=== PATIENT | female | born 1945 | race Caucasian/White ===

== ENCOUNTER 2017-08-17 22:29 | Emergency (ER) | payer MEDICARE ==
[2017-08-17 22:42] VITALS: BP 102/61
--- NOTE | 2017-08-18 01:21 | ER Document Report ---
ED Extremity Problem, Lower - General Chief Complaint: Laceration Stated Complaint: LEFT LEG INJURY Time Seen by Provider: 08/18/17 00:57 Mode of Arrival: Medic Information source: Patient Notes: 71-year-old female presents to ED for laceration to the left guerra and abrasions to the right guerra after the microwave fell out of the shop at the hotel falling on her shins injuring both shins. Patient states the medic helped her to stop the bleeding and put dressings on. She states her tetanus is up-to-date she remembers she had it in 2013. TRAVEL OUTSIDE OF THE [place] IN LAST 30 DAYS: No - HPI Patient complains to provider of: Injury, Pain Location: Leg Occurred: Just prior to arrival Where: Other - lives in a motel Onset/Duration: Sudden Quality of pain: Sharp Severity: Moderate Pain Level: 3 Context: Laceration, Other - contusion abrasion Recent injury: Yes Associated symptoms: Other - microwave fell on both shins Exacerbated by: Movement, Walking Relieved by: Nothing - Related Data Allergies/Adverse Reactions: acetaminophen [From Vicodin] Allergy (Verified 08/18/17 01:07) hydrocodone [From Vicodin] Allergy (Verified 08/18/17 01:07) Sulfa (Sulfonamide Antibiotics) Allergy (Verified 08/18/17 01:07) tetracycline Allergy (Verified 08/18/17 01:07) Past Medical History - General Information source: Patient - Social History Smoking Status: Current Every Day Smoker Cigarette use (# per day): Yes - vapor Chew tobacco use (# tins/day): No Smoking Education Provided: Yes Frequency of alcohol use: None Drug Abuse: None Lives with: Other - motel Family History: Reviewed & Not Pertinent Patient has suicidal ideation: No Patient has homicidal ideation: No - Past Medical History Cardiac Medical History: Reports: Hx Congestive Heart Failure Pulmonary Medical History: Reports: Hx Bronchitis, Hx COPD, Hx Pneumonia EENT Medical History: Reports: None Neurological Medical History: Reports: None Endocrine Medical History: Reports: None Renal/ Medical History: Reports: None Malignancy Medical History: Reports: None GI Medical History: Reports: Hx Gastritis, Hx Gastroesophageal Reflux Disease, Hx Colonoscopy Musculoskeltal Medical History: Reports Hx Arthritis - degenerative disc dx ( back); cervical discs bulging, Reports Hx Musculoskeletal Deformity, Reports Hx Musculoskeletal Trauma Skin Medical History: Reports None Psychiatric Medical History: Reports: Hx Depression Traumatic Medical History: Reports: None Infectious Medical History: Reports: None Past Surgical History: Reports: Hx Orthopedic Surgery - L hip replacement; multiple hip surgeries - Immunizations Hx Diphtheria, Pertussis, Tetanus Vaccination: Yes - 2013 Hx Pneumococcal Vaccination: 05/31/17 Review of Systems - Review of Systems Constitutional: No symptoms reported EENT: No symptoms reported Cardiovascular: No symptoms reported Respiratory: No symptoms reported Gastrointestinal: No symptoms reported Genitourinary: No symptoms reported Female Genitourinary: No symptoms reported Musculoskeletal: No symptoms reported Skin: Change in color, Other - laceration to left and abrasion to right guerra Hematologic/Lymphatic: No symptoms reported Neurological/Psychological: No symptoms reported Physical Exam - Vital signs Vitals: Temp Pulse Resp BP Pulse Ox 98.1 F 82 16 102/61 92 08/17/17 22:37 08/17/17 22:37 08/17/17 22:37 08/17/17 22:37 08/17/17 22:37 Interpretation: Normal - General General appearance: Appears well, Alert - HEENT Head: Normocephalic, Atraumatic Eyes: Normal Pupils: PERRL - Respiratory Respiratory status: No respiratory distress Chest status: Nontender Breath sounds: Normal Chest palpation: Normal - Cardiovascular Rhythm: Regular Heart sounds: Normal auscultation Murmur: No - Abdominal Inspection: Normal Distension: No distension Bowel sounds: Normal Tenderness: Nontender Organomegaly: No organomegaly - Back Back: Normal, Nontender - Extremities General upper extremity: Normal inspection, Nontender, Normal color, Normal ROM , Normal temperature General lower extremity: Normal temperature, Normal weight bearing. No: Moshe' s sign Calf: Tender, Abrasion, Ecchymosis, Laceration. No: Unable to bear weight - pain with ambulation Ankle: Ecchymosis - Neurological Neuro grossly intact: Yes Cognition: Normal Orientation: AAOx4 [place] Coma Scale Eye Opening: Spontaneous [place] Coma Scale Verbal: Oriented [place] Coma Scale Motor: Obeys Commands [place] Coma Scale Total: 15 Speech: Normal Motor strength normal: LUE, RUE, LLE, RLE Sensory: Normal - Psychological Associated symptoms: Normal affect, Normal mood - Skin Skin Temperature: Warm Skin Moisture: Dry Skin Color: Normal Course - Re-evaluation Re-evalutation: 08/18/17 01:43 Patient was treated with Keflex in the emergency room. Patient is on pain management and had already taken her medicine but tonight. Both legs were cleaned well with surgical scrub rinsed well with saline bacitracin Telfa and Kerlix applied to the right lower leg benzoin Steri-Strips Telfa and Kerlix applied to the left lower leg. Patient was given instructions on care for both legs. Patient instructed to follow-up with her primary doctor which she says she has an appointment with in 2 days. Patient states she just saw her pain management doctor today. - Vital Signs Vital signs: Temp Pulse Resp BP Pulse Ox 98.1 F 82 16 102/61 92 08/17/17 22:37 08/17/17 22:37 08/17/17 22:37 08/17/17 22:37 08/17/17 22:37 Procedures - Laceration/Wound Repair Left Leg Time completed: 01:45 Wound length (cm): 5 Wound's Depth, Shape: Superficial, Linear, Contused tissue Laceration pre-procedure: Sterile PPE donned, Sterile drapes applied, Shur- Clens applied Volume Anesthetic (mLs): 0 Wound explored: Clean Irrigated w/ Saline (mLs): 400 Wound Repaired With: Steri-strips Discharge - Discharge Clinical Impression: Abrasion, right lower leg, initial encounter, Contusions both lower legs Laceration of left lower extremity Qualifiers: Encounter type: initial encounter Qualified Code(s): S81.812A - Laceration without foreign body, left lower leg, initial encounter Condition: Stable Disposition: HOME, SELF-CARE Instructions: Family Physicians / Practices Additional Instructions: CONTUSION: Your injury has resulted in a contusion -- a crushing of the deep tissues. No injury to important structures was detected during the physician's exam. Contusions vary in the amount of pain they cause, and in the length of time required for healing. Typically, the area will become bruised, and will remain painful to touch for two or three weeks. However, most patients are back to working and playing within a few days. After the initial period of rest and cold-packs, your symptoms (together with the doctor's recommendations) will determine how rapidly you can get back to full activity. Usually this means "do what feels okay, but don't do things that hurt." If re-examination was recommended, it's important to follow up as instructed. Call the doctor or return any time if pain increases, if swelling becomes severe, if you develop numbness or weakness in an injured extremity, or if any other alarming symptoms occur. ABRASIONS: An abrasion is a scraping injury of the skin. Some scarring may result. The seriousness of an abrasion is not always obvious at first. Hidden tissue damage may be present and infection may occur despite proper care. Complete healing may take from ten days to as long as a month. The healing time depends on the depth of the abrasion, and on the amount of crushing of underlying tissues from the injury. Keep the wound and dressing clean. Do not shower or bathe the area until okayed by the doctor. If the dressing gets wet, remove it and blot the wound dry, then reapply a clean dressing. Dressings should be changed every day. Sunscreen should be used for six months after the skin is healed. If any signs of infection occur (swelling, redness, increasing tenderness, red streaks, profuse purulent drainage from the abrasion, tender lumps in the armpit or groin above the abrasion, or fever), see the doctor immediately. Care of Steri-Strip Closure Your cut has been closed up with a special surgical tape. For this type of cut, it can replace stitches. You must protect the wound just as you would with stitches, however. For the first few days, keep the wound area completely dry. This also means you should avoid activity which makes you sweat. Do not move the area if motion stretches or wrinkles the strips. Don't allow the area to be bumped -- if bleeding occurs, the blood can make the strips loosen. The strips are somewhat waterproof. After a few days, the physician may allow you to shower. Be sure to ask if it's OK. Do not remove the tape until it peels off by itself. At that time, the wound should be healed. Cephalexin The antibiotic you've been prescribed is a member of the cephalosporin class. This type of antibiotic covers a wide variety of infections, including those of the skin, lungs, and urinary tract. It's useful for staph infections. This antibiotic is slightly similar to the penicillin family. In rare cases , a person who is allergic to penicillin will also be allergic to this medication. If you have had a severe allergic reaction to penicillin, and have not taken this antibiotic since that time, notify your doctor. Antibiotics which cover many germs ("broad spectrum" antibiotics) are more likely to cause diarrhea or "yeast" infections. Women prone to vaginal yeast problems may suffer an attack after taking this antibiotic. In infants, oral thrush (white spots "stuck" on the cheek) or yeast diaper rash may result. See your doctor if these problems occur. Call at once if you develop itching, hives , shortness of breath, or lightheadedness. FOLLOW-UP CARE: If you have been referred to a physician for follow-up care, call the physician s office for an appointment as you were instructed or within the next two days. If you experience worsening or a significant change in your symptoms, notify the physician immediately or return to the Emergency Department at any time for re-evaluation. Prescriptions: Cephalexin Monohydrate [Keflex 500 mg Capsule] 500 mg PO Q6H 5 Days capsule
[2017-08-18] MEDS ORDERED: CEPHALEXIN 500 MG CAPSULE PO ONE (01:41)
== END 2017-08-18 01:53 | disposition home or self-care (01) ==
LOC: ER 22:29
PROC: 0HQLXZZ Repair Left Lower Leg Skin, External Approach (ICD-10-PCS; principal; 2017-08-17)
DX: S81.812A Laceration without foreign body, left lower leg, initial encounter (principal); S80.811A Abrasion, right lower leg, initial encounter; S80.11XA Contusion of right lower leg, initial encounter; S80.12XA Contusion of left lower leg, initial encounter; W22.8XXA Striking against or struck by other objects, initial encounter; Y92.59 Other trade areas as the place of occurrence of the external cause; F17.200 Nicotine dependence, unspecified, uncomplicated
CPT/HCPCS: 99282; 12002; A9270

== ENCOUNTER 2019-10-16 15:26 | Observation (INO) | payer MEDICARE ==
--- NOTE | 2019-10-16 16:34 | ER Document Report ---
ED Medical Screen (RME) - General Chief Complaint: Leg Pain Stated Complaint: RIGHT LEG PAIN/WOUND Time Seen by Provider: 10/16/19 16:20 Notes: 73-year-old female presents to the emergency department with an ulceration on her distal right lower extremity just proximal to the medial malleolus. Patient has been seen by wound care and has not improved so they recommended she come to the ER for further evaluation. Patient is on pain management through [facility]. No fevers or chills. Exam: Well-appearing no acute distress, edema OD distal right lower extremity with erythema and 2 cm x 2 cm ulceration proximal to the medial malleolus. I have greeted and performed a rapid initial assessment of this patient. A comprehensive ED assessment and evaluation of the patient, analysis of test results and completion of medical decision making process will be conducted by an additional ED providers. TRAVEL OUTSIDE OF THE [place] IN LAST 30 DAYS: No - Related Data Allergies/Adverse Reactions: acetaminophen [From Vicodin] Allergy (Verified 10/16/19 16:13) hydrocodone [From Vicodin] Allergy (Verified 10/16/19 16:13) Sulfa (Sulfonamide Antibiotics) Allergy (Verified 10/16/19 16:13) tetracycline Allergy (Verified 10/16/19 16:13) Past Medical History - Social History Chew tobacco use (# tins/day): No Frequency of alcohol use: None Drug Abuse: None - Past Medical History Cardiac Medical History: Reports: Hx Congestive Heart Failure Pulmonary Medical History: Reports: Hx Bronchitis, Hx COPD, Hx Pneumonia Renal/ Medical History: Denies: Hx Peritoneal Dialysis GI Medical History: Reports: Hx Gastritis, Hx Gastroesophageal Reflux Disease, Hx Colonoscopy Musculoskeltal Medical History: Reports Hx Arthritis - degenerative disc dx (back); cervical discs bulging, Reports Hx Musculoskeletal Deformity, Reports Hx Musculoskeletal Trauma Psychiatric Medical History: Reports: Hx Depression Past Surgical History: Reports: Hx Orthopedic Surgery - L hip replacement; multiple hip surgeries - Immunizations Hx Diphtheria, Pertussis, Tetanus Vaccination: Yes - 2013 Physical Exam - Vital signs Vitals: Temp Pulse Resp BP Pulse Ox 98.0 F 103 H 17 110/60 95 10/16/19 15:33 10/16/19 15:33 10/16/19 15:33 10/16/19 15:33 10/16/19 15:33 Course - Vital Signs Vital signs: Temp Pulse Resp BP Pulse Ox 98.0 F 103 H 17 110/60 95 10/16/19 16:13 10/16/19 15:33 10/16/19 16:13 10/16/19 15:33 10/16/19 16:13
--- NOTE | 2019-10-16 17:14 | RADIOLOGY REPORT (SQ) ---
EXAM DESCRIPTION: TIBIA FIBULA RIGHT COMPLETED DATE/TIME: 10/16/2019 4:58 pm REASON FOR STUDY: Ulcer, distal medial leg over tib COMPARISON: None. NUMBER OF VIEWS: Two views. TECHNIQUE: Two radiographic images acquired of the right tibia and fibula to include the knee and an kle in at least one projection. LIMITATIONS: None. FINDINGS: MINERALIZATION: Osteopenia. BONES: No acute fracture or dislocation. No worrisome bone lesions. SOFT TISSUES: No radiopaque foreign body. OTHER: No other significant finding. IMPRESSION: No acute osseous findings. TECHNICAL DOCUMENTATION: JOB ID: [id number] [place]-72 2010 [employer]- All Rights Reserved Reading location - IP/workstation name: [email or web address]
[2019-10-16 18:23] LABS: HEMATOCRIT 40.7 % (36.0-47.0); HEMOGLOBIN 13.4 g/dL (12.0-15.5); MEAN CORPUSCULAR HEMOGLOBIN 30.5 pg (27.0-33.4); MEAN CORPUSCULAR HGB CONC 32.9 g/dL (32.0-36.0); MEAN CORPUSCULAR VOLUME 93 fl (80-97); PLATELET COUNT 407 10^3/uL (150-450); RED BLOOD COUNT 4.39 10^6/uL (3.72-5.28)
[2019-10-16 18:46] LABS: ALBUMIN 4.2 g/dL (3.5-5.0); ALKALINE PHOSPHATASE 122 U/L (38-126); ANION GAP 13 (5-19); ASPARTATE AMINO TRANSFERASE 22 U/L (14-36); BILIRUBIN,DIRECT 0.2 mg/dL (0.0-0.4); BILIRUBIN,TOTAL 0.4 mg/dL (0.2-1.3); BLOOD UREA NITROGEN 15 mg/dL (7-20); CARBON DIOXIDE 31 mmol/L (22-30); CHLORIDE 95 mmol/L (98-107); GLUCOSE 89 mg/dL (75-110); POTASSIUM 4.6 mmol/L (3.6-5.0); TOTAL PROTEIN 7.2 g/dL (6.3-8.2)
[2019-10-16 18:57] LABS: ABSOLUTE LYMPHOCYTES# (MANUAL) 0.5 10^3/uL (0.5-4.7); ABSOLUTE MONOCYTES # (MANUAL) 0.9 10^3/uL (0.1-1.4); BASOPHILS % (MANUAL) 0 % (0-2); EOSINOPHILS % (MANUAL) 0 % (0-6); LYMPHOCYTES % (MANUAL) 3 % (13-45); MONOCYTES % (MANUAL) 5 % (3-13); SEGMENTED NEUTROPHILS % (MAN) 92 % (42-78); TOTAL CELLS COUNTED 100
[2019-10-16 18:58] LABS: ANISOCYTOSIS SLIGHT; PLATELET COMMENT ADEQUATE
[2019-10-16 20:45] VITALS: BP 94/76
--- NOTE | 2019-10-16 23:15 | ER Document Report ---
ED General - General Chief Complaint: Leg Pain Stated Complaint: RIGHT LEG PAIN/WOUND Time Seen by Provider: 10/16/19 16:20 Primary Care Provider: Wound Care [Provider Group] - Follow up in 3-5 days TRAVEL OUTSIDE OF THE [place] IN LAST 30 DAYS: No - HPI Notes: Patient is a 73-year-old female with a history of chronic pain, anxiety, panic attacks, on chronic low dose steroids who presents complaining of nonhealing wound to the right lower leg. Patient states that she will have occasional issues with edema to that leg, but does have an ulceration and wound that has been present since July. Patient states that she has been being treated by her pain medicine clinic and has been on Keflex for 5 days. They are trying to get her into wound clinic, but wanted her here for evaluation prior. She is able to eat and drink without difficulty. She is urinating normally and having normal bowel movements. No history of diabetes or MRSA. Denies any headache, fever, neck pain, URI, sore throat, chest pain, palpitations, syncope, cough, shortness of breath, wheeze, dyspnea, abdominal pain, nausea/vomiting/diarrhea, urinary retention, dysuria, hematuria, loss of control of bowel or bladder, numbness/tingling, muscle paralysis. - Related Data Allergies/Adverse Reactions: acetaminophen [From Vicodin] Allergy (Verified 10/16/19 16:13) hydrocodone [From Vicodin] Allergy (Verified 10/16/19 16:13) Sulfa (Sulfonamide Antibiotics) Allergy (Verified 10/16/19 16:13) tetracycline Allergy (Verified 10/16/19 16:13) Past Medical History - Social History Smoking Status: Never Smoker Chew tobacco use (# tins/day): No Frequency of alcohol use: None Drug Abuse: None Family History: Reviewed & Not Pertinent Patient has suicidal ideation: No Patient has homicidal ideation: No - Past Medical History Cardiac Medical History: Reports: Hx Congestive Heart Failure Pulmonary Medical History: Reports: Hx Bronchitis, Hx COPD, Hx Pneumonia Renal/ Medical History: Denies: Hx Peritoneal Dialysis GI Medical History: Reports: Hx Gastritis, Hx Gastroesophageal Reflux Disease, Hx Colonoscopy Musculoskeletal Medical History: Reports Hx Arthritis - degenerative disc dx (back); cervical discs bulging, Reports Hx Musculoskeletal Deformity, Reports Hx Musculoskeletal Trauma Psychiatric Medical History: Reports: Hx Depression Past Surgical History: Reports: Hx Orthopedic Surgery - L hip replacement; multiple hip surgeries - Immunizations Hx Diphtheria, Pertussis, Tetanus Vaccination: Yes - 2013 Hx Pneumococcal Vaccination: 05/31/17 Review of Systems - Review of Systems -: Yes All other systems reviewed and negative Physical Exam - Vital signs Vitals: Temp Pulse Resp BP Pulse Ox 98.0 F 103 H 17 110/60 95 10/16/19 15:33 10/16/19 15:33 10/16/19 15:33 10/16/19 15:33 10/16/19 15:33 - Notes Notes: PHYSICAL EXAMINATION: GENERAL: Well-appearing, well-nourished and in no acute distress. LUNGS: Breath sounds clear to auscultation bilaterally and equal. No wheezes rales or rhonchi. HEART: Regular rate and rhythm without murmurs, rubs, gallops. Musculoskeletal: FROM to passive/active. Strength 5+/5. Extremities: 3+ pitting edema rt LE. No edema LLE. Peripheral pulses 2+. Capillary refill less than 3 seconds. NEUROLOGICAL: Cranial nerves grossly intact. Normal speech, normal gait. Normal sensory, motor exams PSYCH: Normal mood, normal affect. SKIN: RLE is warm, erythemic, edematous. + 4x2cm ulceration noted to the medial distal lower leg. there is weeping noted from the leg. Course - Re-evaluation Re-evalutation: 10/16/19 23:20 Patient is an afebrile, well-hydrated, 73-year-old female who presents with right lower leg ulceration and cellulitis with leukocytosis. Vitals are acceptable. PE is otherwise unremarkable. See labs. Imaging unremarkable. Patient has failed outpatient treatment with Keflex. I do believe the patient needs admission for IV antibiotics and wound care. I did call and speak with our surgeon, Dr. Cortes, who will come eval the patient and would like her on clindamycin IV. 10/17/19 00:01 Dr. Cortes does agree patient needs IV antibiotics, but no surgical intervention is warranted and recommends hospitalist admission. 10/17/19 00:[address] Atkinson who will accept patient for admit to telemetry. 10/17/19 00:21 Patient is now changing her mind about admission. I reviewed the risk and benefit of admission versus discharge including worsening infection, sepsis, and even . Patient states that she just wants to take the clindamycin at home and she will follow-up with her family doctor in the next couple days. Strict return precautions reviewed. Patient aware of the risk/benefits of her decision. - Vital Signs Vital signs: Temp Pulse Resp BP Pulse Ox 98.3 F 77 16 94/76 L 97 10/16/19 20:38 10/16/19 20:38 10/16/19 20:38 10/16/19 20:38 10/16/19 20:38 - Laboratory Result Diagrams: 10/16/19 17:45 10/16/19 17:45 Laboratory results interpreted by me: 10/16/19 10/16/19 17:45 17:45 WBC 18.0 H Seg Neuts % (Manual) 92 H Lymphocytes % (Manual) 3 L Abs Neuts (Manual) 16.6 H Chloride 95 L Carbon Dioxide 31 H Discharge - Discharge Clinical Impression: Cellulitis of right lower extremity Wound of right lower extremity Qualifiers: Encounter type: initial encounter Qualified Code(s): S81.801A - Unspecified open wound, right lower leg, initial encounter Condition: Stable Disposition: AGAINST MEDICAL ADVICE Additional Instructions: You have chosen to leave AGAINST MEDICAL ADVICE. You are aware of the risk and benefit to this decision including worsening infection, sepsis, and even . You are to monitor very closely and take medications as directed. Strict return precautions. Do not hesitate to return for any reason. You need to follow-up with your family doctor in the next couple days. Keep the skin clean Wash with soap and water Tylenol/ibuprofen if needed Epsom salt soaks Take medication as directed Monitor for any worsening symptoms Recheck with your PCM in 1-2 days Consider consult with Wound Clinic for ongoing/worsening symptoms Return to the ED with any worsening symptoms and/or development of fever, headache, chest pain, palpitations, syncope, shortness of breath, trouble breathing, abdominal pain, n/v/d, abscess, purulent discharge, red streaks, worsening swelling, or other worsening symptoms that are concerning to you. Prescriptions: Clindamycin HCl [Cleocin 300 mg Capsule] 300 mg PO QID #40 capsule Referrals: Wound Care [Provider Group] - Follow up in 3-5 days
[2019-10-16] MEDS ORDERED: CLINDAMYCIN 600 MG/D5W RTU 600 MG/50 ML RTUPB IV ONE (23:19)
[2019-10-17] MEDS ORDERED: NORMAL SALINE 1000 ML 1,000 ML IV ONE (00:06)
[2019-10-17] MEDS ORDERED: IPRATROPIUM/ALBUTEROL 0.5-2.5 MG/3 ML AMPUL NEB PRN (00:12)
[2019-10-17] MEDS ORDERED: MAGNESIUM HYDROXIDE SUSP 30 ML UDCUP PO PRN (00:12)
[2019-10-17] MEDS ORDERED: MAG HYDROX/AL HYDROX/SIMETH SUSP 30 ML UDCUP PO PRN (00:12)
[2019-10-17] MEDS ORDERED: KETOROLAC TROMETHAMINE INJ/PF 30 MG/1 ML SDV IV PRN (00:15)
[2019-10-17] MEDS ORDERED: VANCOMYCIN HCL 0 MG in DEXTROSE 5%-WATER 250 ML IV NR (00:15)
[2019-10-17] MEDS ORDERED: NORMAL SALINE 1000 ML 1,000 ML IV PRN (00:15)
--- NOTE | 2019-10-17 00:21 | PDOC CONSULTATION ---
Consultation Consult Date: 10/16/19 Provider Consulted: EDVIN RAMOS Consult reason:: Ulcer with the redness and swelling along the right lower leg History of Present Illness History of Present Illness: HOWARD GR is a 73 year old female with chronic back pains under pain management with a for the past year taking morphine sulfate and hydrocodone as well as prednisone on a daily basis noted ulcer along the right medial ankle area with redness and swelling in the past 2 weeks. She apparently fell and injured her leg and ribs 2 weeks ago. She further takes her medications for panic attacks. 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 Denies any fever nor chills. She apparently was at the wound care center in [place] few years ago and told that she has poor circulation in both lower legs. Past Medical History Cardiac Medical History: Reports: Congestive Heart Failure Pulmonary Medical History: Reports: Bronchitis, Chronic Obstructive Pulmonary Disease (COPD), Pneumonia GI Medical History: Reports: Gastroesophageal Reflux Disease Musculoskeltal Medical History: Reports: Arthritis - degenerative disc dx (back); cervical discs bulging Psychiatric Medical History: Reports: Depression Past Surgical History Past Surgical History: Reports: Orthopedic Surgery - L hip replacement; multiple hip surgeries Social History Smoking Status: Former Smoker Electronic Cigarette use?: No Hx Prescription Drug Abuse: Yes - On morphine sulfate and hydrocodone for back pains on pain management Family History Family History: Reviewed & Not Pertinent Parental Family History Reviewed: Yes Children Family History Reviewed: No Sibling(s) Family History Reviewed.: No Medication/Allergy Home Medications: Cephalexin Monohydrate [Keflex 500 mg Capsule] 500 mg PO Q6H 5 Days capsule 08/18/17 Allergies/Adverse Reactions: acetaminophen [From Vicodin] Allergy (Verified 10/16/19 16:13) hydrocodone [From Vicodin] Allergy (Verified 10/16/19 16:13) Sulfa (Sulfonamide Antibiotics) Allergy (Verified 10/16/19 16:13) tetracycline Allergy (Verified 10/16/19 16:13) Review of Systems Constitutional: PRESENT: as per HPI Psychiatric: PRESENT: other - Has panic attacks and takes medication for this Endocrine: PRESENT: other - Takes prednisone 5 mg p.o. daily Physical Exam Vital Signs: Temp Pulse Resp BP Pulse Ox 98.3 F 77 16 94/76 L 97 10/16/19 20:38 12/17/19 20:38 10/16/19 20:38 10/16/19 20:38 10/16/19 20:38 Intake & Output 10/15/19 10/16/19 10/17/19 06:59 06:59 06:59 Weight 45.6 kg General appearance: PRESENT: mild distress Eye exam: PRESENT: conjunctiva pink Mouth exam: PRESENT: moist Neck exam: PRESENT: full ROM Respiratory exam: PRESENT: clear to auscultation verónica Cardiovascular exam: PRESENT: RRR Pulses: PRESENT: +1 pedal pulses bilateral Vascular exam: PRESENT: normal capillary refill GI/Abdominal exam: PRESENT: soft Rectal exam: PRESENT: deferred Extremities exam: PRESENT: other - Tender dry 2 x 4 cm ulcer on the right medial ankle area with's surrounding erythema and marked swelling. Palpable right dorsalis pedis artery pulse. No tissue to debride at this time Neurological exam: PRESENT: alert, oriented to person, oriented to place, oriented to time, oriented to situation Psychiatric exam: PRESENT: anxious Skin exam: PRESENT: erythema, warm, other - Swollen right below knee to the ankle area where the skin appears to be very thin with an ulceration on the medial ankle site about 2 x 4 cm. Results Laboratory Results: 10/16/19 17:45 10/16/19 17:45 10/16/19 10/16/19 17:45 17:45 WBC 18.0 H RBC 4.39 Hgb 13.4 Hct 40.7 MCV 93 MCH 30.5 MCHC 32.9 RDW 14.0 Plt Count 407 Seg Neutrophils % Not Reportable Sodium 138.5 Potassium 4.6 Chloride 95 L Carbon Dioxide 31 H Anion Gap 13 BUN 15 Creatinine 0.70 Est GFR ( Amer) > 60 Glucose 89 Calcium 10.0 Total Bilirubin 0.4 AST 22 Alkaline Phosphatase 122 Total Protein 7.2 Albumin 4.2 Impressions: Tibia/Fibula X-Ray 10/16/19 16:28 IMPRESSION: No acute osseous findings. Assessment & Plan - Diagnosis (1) Chronic back pain Is this a current diagnosis for this admission?: Yes (2) Pain management for back pains Is this a current diagnosis for this admission?: Yes (3) History of panic attacks Is this a current diagnosis for this admission?: Yes (4) On prednisone therapy Is this a current diagnosis for this admission?: Yes (5) Cellulitis of right lower extremity Is this a current diagnosis for this admission?: Yes (6) Wound of right lower extremity Qualifiers: Encounter type: initial encounter Qualified Code(s): S81.801A - Unspecified open wound, right lower leg, initial encounter Is this a current diagnosis for this admission?: Yes (7) Congenital right hip abnormality Is this a current diagnosis for this admission?: Yes - Time Time Spent: 30 to 50 Minutes - Inpatient Certification Medical Necessity: Need for Pain Control, Need for IV Antibiotics - Plan Summary Plan Summary: 73-year-old female under pain management for back pains on narcotics and predn isone reportedly fell and injured her ribs and right leg about 2 months ago. 2 weeks ago noted an ulceration along the right lower leg with reddish swelling around the right lower leg and increasing pains along the right ulcer site. Denies any fever nor chills. Has palpable right dorsalis pedis artery pulse. Impression: Ulcer right lower leg with cellulitis Recommendations: IV antibiotics right leg elevation Will eventually need referral to the wound care center once cellulitis improves Call for other questions
[2019-10-17] MEDS ORDERED: VANCOMYCIN HCL INJ 1000 MG VIAL IV PRN (00:34)
[2019-10-17] MEDS ORDERED: VANCOMYCIN HCL 1,000 MG in DEXTROSE 5%-WATER 250 ML IV ONE (01:00)
[2019-10-17] MEDS ORDERED: CEFTRIAXONE 1 GM/D5W RTU 1 GM/50 ML RTUPB IV ONE (01:00)
[2019-10-17] MEDS ORDERED: HEPARIN SOD (PORCINE) 5,000 UNIT/ML 1 ML VIAL SUBCUT SCH (06:00)
[2019-10-17] MEDS ORDERED: DOCUSATE SODIUM 100 MG CAPSULE PO SCH (10:00)
[2019-10-17] MEDS ORDERED: CEFTRIAXONE 1 GM/D5W RTU 1 GM/50 ML RTUPB IV SCH (22:00)
== END 2019-10-17 00:55 | disposition left against medical advice (07) ==
LOC: ER 15:26 → EH 10-17 00:12 → ER 10-17 00:55
PROVIDERS: ADMIT Internal Medicine; ATTEND Internal Medicine
DX: S81.801A Unspecified open wound, right lower leg, initial encounter (principal); L03.115 Cellulitis of right lower limb; X58.XXXA Exposure to other specified factors, initial encounter; G89.29 Other chronic pain; M79.604 Pain in right leg; I50.9 Heart failure, unspecified; J44.9 Chronic obstructive pulmonary disease, unspecified; Z88.6 Allergy status to analgesic agent; Z88.2 Allergy status to sulfonamides; Z96.642 Presence of left artificial hip joint; Z79.52 Long term (current) use of systemic steroids
CPT/HCPCS: 36415; 80053; 85025; 87040; 96365; 99284

== ENCOUNTER 2019-10-22 20:41 | Inpatient (IN) | payer MEDICARE ==
[2019-10-22] MEDS ORDERED: IPRATROPIUM/ALBUTEROL 0.5-2.5 MG/3 ML AMPUL NEB ONE (21:24)
--- NOTE | 2019-10-22 21:26 | ER Document Report ---
ED Medical Screen (RME) - General Chief Complaint: Wound Recheck Stated Complaint: WOUND Time Seen by Provider: 10/22/19 21:22 Primary Care Provider: ABENA SOLIS [Primary Care Provider] - Follow up as needed Mode of Arrival: Wheelchair Notes: Patient presents complaining of worsening infection to the right lower extremity. Patient was treated for cellulitis here on 10/16/2019. Patient stat es that her primary doctor had initially placed on Keflex for the wound and she was switched to clindamycin at her last ER visit. Patient also reports cough that started recently. Patient with diffuse bilateral wheezing. I have greeted and performed a rapid initial assessment of this patient. A comprehensive ED assessment and evaluation of the patient, analysis of test results and completion of the medical decision making process will be conducted by additional ED providers. TRAVEL OUTSIDE OF THE [place] IN LAST 30 DAYS: No - Related Data Allergies/Adverse Reactions: acetaminophen [From Vicodin] Allergy (Verified 10/16/19 16:13) hydrocodone [From Vicodin] Allergy (Verified 10/16/19 16:13) Sulfa (Sulfonamide Antibiotics) Allergy (Verified 10/16/19 16:13) tetracycline Allergy (Verified 10/16/19 16:13) Past Medical History - Past Medical History Cardiac Medical History: Reports: Hx Congestive Heart Failure Pulmonary Medical History: Reports: Hx Bronchitis, Hx COPD, Hx Pneumonia Renal/ Medical History: Denies: Hx Peritoneal Dialysis GI Medical History: Reports: Hx Gastritis, Hx Gastroesophageal Reflux Disease, Hx Colonoscopy Musculoskeltal Medical History: Reports Hx Arthritis - degenerative disc dx (back); cervical discs bulging, Reports Hx Musculoskeletal Deformity, Reports Hx Musculoskeletal Trauma Psychiatric Medical History: Reports: Hx Depression Past Surgical History: Reports: Hx Orthopedic Surgery - L hip replacement; multiple hip surgeries - Immunizations Hx Diphtheria, Pertussis, Tetanus Vaccination: Yes - 2013 Physical Exam - Vital signs Vitals: Temp Pulse Resp BP Pulse Ox 97.4 F 110 H 20 117/58 L 98 10/22/19 20:53 10/22/19 20:53 10/22/19 20:53 10/22/19 20:53 10/22/19 20:53 - Respiratory Respiratory status: No respiratory distress Breath sounds: Nonproductive cough, Wheezing Course - Vital Signs Vital signs: Temp Pulse Resp BP Pulse Ox 97.4 F 110 H 20 117/58 L 98 10/22/19 21:15 10/22/19 21:15 10/22/19 21:15 10/22/19 21:15 10/22/19 21:15 Doctor's Discharge - Discharge Referrals: WILL,NO [Primary Care Provider] - Follow up as needed
[2019-10-22 22:01] LABS: VENOUS BLOOD BASE EXCESS 4.1 mmol/L; VENOUS BLOOD HCO3 31.9 mmol/L (20-32); VENOUS BLOOD PCO2 62.9 mmHg (35-63); VENOUS BLOOD PH 7.32 (7.30-7.42)
[2019-10-22 22:06] LABS: INTERNATIONAL RATION (INR) 0.96; PROTHROMBIN TIME 12.8 SEC (11.4-15.4)
[2019-10-22 22:16] LABS: ALBUMIN 3.3 g/dL (3.5-5.0); ALKALINE PHOSPHATASE 86 U/L (38-126); ANION GAP 10 (5-19); ASPARTATE AMINO TRANSFERASE 30 U/L (14-36); BILIRUBIN,DIRECT 0.2 mg/dL (0.0-0.4); BILIRUBIN,TOTAL 0.5 mg/dL (0.2-1.3); BLOOD UREA NITROGEN 11 mg/dL (7-20); CALCIUM 8.8 mg/dL (8.4-10.2); CARBON DIOXIDE 29 mmol/L (22-30); CHLORIDE 99 mmol/L (98-107); GLUCOSE 198 mg/dL (75-110); POTASSIUM 3.4 mmol/L (3.6-5.0); TOTAL PROTEIN 6.5 g/dL (6.3-8.2)
[2019-10-22 22:25] LABS: HEMATOCRIT 37.8 % (36.0-47.0); HEMOGLOBIN 12.4 g/dL (12.0-15.5); MEAN CORPUSCULAR HEMOGLOBIN 30.2 pg (27.0-33.4); MEAN CORPUSCULAR HGB CONC 32.7 g/dL (32.0-36.0); MEAN CORPUSCULAR VOLUME 93 fl (80-97); PLATELET COUNT 267 10^3/uL (150-450); RED BLOOD COUNT 4.09 10^6/uL (3.72-5.28); RED CELL DISTRIBUTION WIDTH 13.9 % (11.5-14.0); WHITE BLOOD COUNT 11.2 10^3/uL (4.0-10.5)
--- NOTE | 2019-10-22 22:32 | EKG REPORT ---
SEVERITY:- ABNORMAL ECG - SINUS RHYTHM BIATRIAL ABNORMALITIES : Confirmed by: Rowena Edwards MD 22-Oct-2019 22:31:56
--- NOTE | 2019-10-22 22:41 | RADIOLOGY REPORT (SQ) ---
EXAM DESCRIPTION: XR CHEST 2 VIEWS COMPLETED DATE/TME: 10/22/2019 21:24 CLINICAL HISTORY: 73 years, Female, cough COMPARISON: None. NUMBER OF VIEWS: 2 TECHNIQUE: 2 views of the chest LIMITATIONS: None. FINDINGS: The heart size is normal. There is atheromatous change of the thoracic aorta. Osteopenia. COPD. No pneumothorax. Multiple old right rib fractures. Lungs are clear IMPRESSION: COPD. Lungs are clear copyright 2010 [employer]- All Rights Reserved
[2019-10-22 22:47] LABS: ABSOLUTE LYMPHOCYTES# (MANUAL) 0.2 10^3/uL (0.5-4.7); ABSOLUTE MONOCYTES # (MANUAL) 0.1 10^3/uL (0.1-1.4); BAND NEUTROPHILS % (MANUAL) 3 % (3-5); BASOPHILS % (MANUAL) 0 % (0-2); EOSINOPHILS % (MANUAL) 0 % (0-6); LYMPHOCYTES % (MANUAL) 2 % (13-45); MONOCYTES % (MANUAL) 1 % (3-13); PLATELET COMMENT ADEQUATE; RBC MORPHOLOGY COMMENT NORMO-CYTIC/CHROMIC; SEGMENTED NEUTROPHILS % (MAN) 94 % (42-78); TOTAL CELLS COUNTED 100
[2019-10-22] MEDS ORDERED: CLINDAMYCIN PHOSPHATE INJ 300 MG/2 ML SDV IV ONE (23:26)
[2019-10-23 00:36] LABS: APPEARANCE,URINE CLEAR; BILIRUBIN,URINE NEGATIVE (NEGATIVE); COLOR,URINE YELLOW; GLUCOSE, URINE NEGATIVE (NEGATIVE); KETONES,URINE NEGATIVE (NEGATIVE); PROTEIN,URINE 30 mg/dL (NEGATIVE); URINE SPECIFIC GRAVITY 1.017; UROBILINOGEN,URINE NEGATIVE mg/dL (<2.0)
--- NOTE | 2019-10-23 01:28 | RADIOLOGY REPORT (SQ) ---
EXAM: X-ray tibia-fibula two views, right CLINICAL DATA: 73-year-old female with open wound and cellulitis TECHNICAL DATA: Two x-ray views of the right tibia fibula were performed on 10/23/2019 at 12:54 AM. COMPARISONS: 10/16/2019 at 4:51 PM FINDINGS: There is no evidence of acute fracture or dislocation. There are no pathologic focal lytic or sclerotic bone lesions. No significant arthritic or degenerative changes are appreciated. When compared to the prior study, there appears to be slight indistinctness of the distal tip of the medial malleolus suspicious for possible osteomyelitis. Bone mineralization is slightly diminished. There is a lucency within the soft tissues adjacent to the distal medial right lower leg likely corresponding to the site of ulceration. There is also lucency within the soft tissues inferior to the medial malleolus. IMPRESSION: 1. Indistinctness of the tip of the medial malleolus which appears new when compared to the prior study. Findings raise concern for possible osteomyelitis. 2. Lucency within the soft tissues adjacent to the distal medial right lower leg and inferior to the medial malleolus which could represent areas of soft tissue ulceration and/or infection. 3. Mild generalized osteopenia.
--- NOTE | 2019-10-23 01:56 | ER Document Report ---
ED General - General Chief Complaint: Wound Recheck Stated Complaint: WOUND Time Seen by Provider: 10/22/19 21:22 Primary Care Provider: ABENA SOLIS [NO LOCAL MD] - Follow up as needed Mode of Arrival: Wheelchair Notes: 73-year-old woman presents to the emergency department with infection involving her left lower leg. Apparently she has an ulcer on the posterior aspect of the leg and cellulitis which extends into the leg. She was admitted to the hospital 10/17/2018 with right leg wound and cellulitis, patient signed herself out AGAINST MEDICAL ADVICE and now returns. She notes increasing redness increasing swelling and a worsening ulcer on the posterior aspect of her leg. She denies fever, nausea vomiting, and was started on an antibiotic outside by her primary physician. TRAVEL OUTSIDE OF THE [place] IN LAST 30 DAYS: No - Related Data Allergies/Adverse Reactions: acetaminophen [From Vicodin] Allergy (Verified 10/16/19 16:13) amoxicillin [From Augmentin] Allergy (Verified 10/22/19 21:42) clavulanic acid [From Augmentin] Allergy (Verified 10/22/19 21:42) hydrocodone [From Vicodin] Allergy (Verified 10/16/19 16:13) Sulfa (Sulfonamide Antibiotics) Allergy (Verified 10/16/19 16:13) tetracycline Allergy (Verified 10/16/19 16:13) Past Medical History - Social History Smoking Status: Unknown if Ever Smoked Family History: Reviewed & Not Pertinent Patient has suicidal ideation: No Patient has homicidal ideation: No - Past Medical History Cardiac Medical History: Reports: Hx Congestive Heart Failure Pulmonary Medical History: Reports: Hx Bronchitis, Hx COPD, Hx Pneumonia Renal/ Medical History: Denies: Hx Peritoneal Dialysis GI Medical History: Reports: Hx Gastritis, Hx Gastroesophageal Reflux Disease, Hx Colonoscopy Musculoskeletal Medical History: Reports Hx Arthritis - degenerative disc dx (back); cervical discs bulging, Reports Hx Musculoskeletal Deformity, Reports Hx Musculoskeletal Trauma Psychiatric Medical History: Reports: Hx Depression Past Surgical History: Reports: Hx Orthopedic Surgery - L hip replacement; multiple hip surgeries - Immunizations Hx Diphtheria, Pertussis, Tetanus Vaccination: Yes - 2013 Hx Pneumococcal Vaccination: 05/31/17 Review of Systems - Review of Systems Notes: Constitutional: Negative for fever. HENT: Negative for sore throat. Eyes: Negative for visual changes. Cardiovascular: Negative for chest pain. Respiratory: Negative for shortness of breath. Gastrointestinal: Negative for abdominal pain, vomiting or diarrhea. Genitourinary: Negative for dysuria. Musculoskeletal: + Right lower extremity redness, + wound Skin: Negative for rash. Neurological: Negative for headaches, weakness or numbness. 10 point ROS negative except as marked above and in HPI. Physical Exam - Vital signs Vitals: Temp Pulse Resp BP Pulse Ox 97.4 F 110 H 20 117/58 L 98 10/22/19 20:53 10/22/19 20:53 10/22/19 20:53 10/22/19 20:53 10/22/19 20:53 - Notes Notes: VS: reviewed GEN: pleasant elderly female in no acute distress, HEENT: NCAT, EOMi, PERRL, oropharynx clear, airway patent, mucous membranes moist, EAC clear, TMs intact, NECK: thyroid not palpable, no LAD, carotic pulse 2+B, no bruits, no JVD RESP: clear the wheezes, rales or rhonchi Chest: heart: regular rate and rhythm, no murmur,gallop or rub, nontender ABD: +BS, distended, nontender, no HSM PULSES: 2+femoral B, 1+ PT/DP B EXT right lower extremity with a 6 cm oval-shaped wound with a surface necrosis surrounded by erythema which extends from the wound throughout the lower leg., Erythema, edema, tenderness. SKIN: warm and intact NEURO: AOX3; difficulty remembering events, dates; remainder of exam nonfocal Course - Re-evaluation Re-evalutation: 10/23/19 02:20 Patient has had a worsening course since the day she signed out AGAINST MEDICAL ADVICE. X-ray of the right lower extremity reveals an indistinct this of the tip of the medial malleolus which appears new when compared to a prior study. Findings raises the concern of possible osteomyelitis. Lucency within the soft tissues adjacent to the distal medial right leg and inferior to the medial malleolus which represents an area of soft tissue ulceration and/or infection. I discussed these findings with the patient and explained that she would need to be hospitalized for IV antibiotics and that signing herself out AGAINST MEDICAL ADVICE would be a bad decision. Patient acknowledges an understanding of this plan and states that she will stay in the hospital for treatment this time. Dr. Atkinson was contacted and will admit the patient to the hospital for further evaluation and treatment. - Vital Signs Vital signs: Temp Pulse Resp BP Pulse Ox 97.4 F 110 H 20 117/58 L 98 10/22/19 21:15 10/22/19 21:15 10/22/19 21:15 10/22/19 21:15 10/22/19 21:15 - Laboratory Result Diagrams: 10/22/19 21:40 10/22/19 21:40 Laboratory results interpreted by me: 10/22/19 10/22/19 10/22/19 21:40 21:40 21:40 WBC 11.2 H Seg Neuts % (Manual) 94 H Lymphocytes % (Manual) 2 L Monocytes % (Manual) 1 L Abs Neuts (Manual) 10.9 H Abs Lymphs (Manual) 0.2 L Potassium 3.4 L Glucose 198 H NT-Pro-B Natriuret Pep 679 H Albumin 3.3 L Urine Protein Leukocyte Esterase Rfl Urine Ascorbic Acid 10/23/19 00:15 WBC Seg Neuts % (Manual) Lymphocytes % (Manual) Monocytes % (Manual) Abs Neuts (Manual) Abs Lymphs (Manual) Potassium Glucose NT-Pro-B Natriuret Pep Albumin Urine Protein 30 H Leukocyte Esterase Rfl SMALL H Urine Ascorbic Acid 20 H 10/23/19 02:02 I have reviewed laboratory data and used this information for the treatment decisions regarding the patient. Critical Care Note - Critical Care Note Total time excluding time spent on procedures (mins): 60 - Critical care time spent obtaining history from patient or surrogate, discussions with consultants, development of treatment plan with patient or surrogate, evaluation of patient's response to treatment, examination of patient, ordering and performing treatments and interventions, ordering and review of laboratory studies, re- evaluation of patient's condition, ordering and review of radiographic studies and review of old charts Discharge - Discharge Clinical Impression: Cellulitis of right lower extremity, Pain management for back pains Wound of right lower extremity Qualifiers: Encounter type: initial encounter Qualified Code(s): S81.801A - Unspecified open wound, right lower leg, initial encounter Condition: Good Disposition: ADMITTED INPATIENT Admitting Provider: Demetrio (Hospitalist) Unit Admitted: Medical Floor Referrals: LOCALMD,NO [NO LOCAL MD] - Follow up as needed
[2019-10-23] MEDS ORDERED: MAG HYDROX/AL HYDROX/SIMETH SUSP 30 ML UDCUP PO PRN (03:02)
[2019-10-23] MEDS ORDERED: ACETAMINOPHEN 325 MG TABLET PO PRN (03:02)
[2019-10-23] MEDS ORDERED: IPRATROPIUM/ALBUTEROL 0.5-2.5 MG/3 ML AMPUL NEB PRN (03:02)
[2019-10-23] MEDS ORDERED: MAGNESIUM HYDROXIDE SUSP 30 ML UDCUP PO PRN (03:02)
[2019-10-23] MEDS ORDERED: VANCOMYCIN HCL 0 MG in DEXTROSE 5%-WATER 250 ML IV NR (03:15)
[2019-10-23 03:37] LABS: ANION GAP 7 (5-19); BLOOD UREA NITROGEN 12 mg/dL (7-20); CALCIUM 8.5 mg/dL (8.4-10.2); CARBON DIOXIDE 29 mmol/L (22-30); CHLORIDE 102 mmol/L (98-107); GLUCOSE 132 mg/dL (75-110); POTASSIUM 3.6 mmol/L (3.6-5.0)
[2019-10-23] MEDS ORDERED: VANCOMYCIN HCL INJ 1000 MG VIAL IV PRN (03:39)
[2019-10-23] MEDS ORDERED: PIPERACILLIN/TAZOBACTAM 3.375 GM VIAL IV PRN (03:40)
[2019-10-23] MEDS ORDERED: VANCOMYCIN HCL 1,000 MG in DEXTROSE 5%-WATER 250 ML IV ONE (03:45)
[2019-10-23] MEDS: NORMAL SALINE 1000 ML 1,000 ML IV PRN ×2 (04:28→12:39)
[2019-10-23] MEDS ORDERED: VANCOMYCIN HCL INJ 1000 MG VIAL ONE (04:30)
[2019-10-23] MEDS ORDERED: PIPERACILLIN/TAZOBACTAM 3.375 GM VIAL IV ONE (04:31)
--- NOTE | 2019-10-23 05:41 | PDOC H&P ---
History of Present Illness Admission Date/PCP: 10/23/19 02:34 BOLIVAR YADAV MD Patient complains of: Right leg ulcer and cough History of Present Illness: HOWARD GR is a 73 year old female with a past medical history of COPD, chronic bronchitis, opiate dependent chronic pain and anxiety who presents with 2 weeks of erythema swelling, pain and large ulcer to the medial aspect of her right leg involving the medial malleolus. Patient was seen in the emergency department October 17 but signed out AGAINST MEDICAL ADVICE. She did receive a prescription for Keflex but was unimproved. She returns with complaints of worsening leg wound and COPD exacerbation with bronchitis. Labs reveal leukocytosis, leg x-ray is worrisome for osteomyelitis involving the medial malleolus. She started on empiric antibiotics and referred to the hospitalist for admission. Past Medical History Cardiac Medical History: Reports: Congestive Heart Failure Pulmonary Medical History: Reports: Bronchitis, Chronic Obstructive Pulmonary Disease (COPD), Pneumonia GI Medical History: Reports: Gastroesophageal Reflux Disease Musculoskeltal Medical History: Reports: Arthritis - degenerative disc dx (back); cervical discs bulging Psychiatric Medical History: Reports: Depression Past Surgical History Past Surgical History: Reports: Orthopedic Surgery - L hip replacement; multiple hip surgeries Social History Information Source: Patient, [facility] Records Smoking Status: Unknown if Ever Smoked Frequency of Alcohol Use: None Hx Prescription Drug Abuse: Yes - On morphine sulfate and hydrocodone for back pains on pain management - Advance Directive Resuscitation Status: Full Code Family History Family History: Hypertension Parental Family History Reviewed: Yes Children Family History Reviewed: Yes Sibling(s) Family History Reviewed.: Yes Medication/Allergy Home Medications: Cephalexin Monohydrate [Keflex 500 mg Capsule] 500 mg PO Q6H 5 Days capsule 08/18/17 Clindamycin HCl [Cleocin 300 mg Capsule] 300 mg PO QID #40 capsule 10/17/19 Allergies/Adverse Reactions: acetaminophen [From Vicodin] Allergy (Verified 10/16/19 16:13) amoxicillin [From Augmentin] Allergy (Verified 10/22/19 21:42) clavulanic acid [From Augmentin] Allergy (Verified 10/22/19 21:42) hydrocodone [From Vicodin] Allergy (Verified 10/16/19 16:13) Sulfa (Sulfonamide Antibiotics) Allergy (Verified 10/16/19 16:13) tetracycline Allergy (Verified 10/16/19 16:13) Review of Systems Constitutional: PRESENT: as per HPI, fatigue. ABSENT: chills, fever(s), headache(s), weight gain, weight loss Eyes: ABSENT: visual disturbances Ears: ABSENT: hearing changes Cardiovascular: ABSENT: chest pain, edema, orthropnea, palpitations Respiratory: PRESENT: as per HPI, cough, dyspnea, sputum. ABSENT: hemoptysis Gastrointestinal: ABSENT: abdominal pain, constipation, diarrhea, hematemesis, hematochezia, nausea, vomiting Genitourinary: ABSENT: dysuria, hematuria Musculoskeletal: ABSENT: joint swelling Integumentary: PRESENT: lesions, wounds - Worsening erythema, edema and ulcer of the right leg. ABSENT: rash Neurological: ABSENT: abnormal gait, abnormal speech, confusion, dizziness, focal weakness, syncope Psychiatric: ABSENT: anxiety, depression, homidical ideation, suicidal ideation Endocrine: ABSENT: cold intolerance, heat intolerance, polydipsia, polyuria Hematologic/Lymphatic: ABSENT: easy bleeding, easy bruising Physical Exam Vital Signs: Temp Pulse Resp BP Pulse Ox 97.7 F 85 16 118/65 100 10/23/19 03:25 10/23/19 03:25 10/23/19 03:25 10/23/19 03:25 10/23/19 03:25 Intake & Output 10/21/19 10/22/19 10/23/19 11:59 11:59 11:59 Weight 47.627 kg General appearance: PRESENT: cooperative, mild distress, well-developed, well- nourished Head exam: PRESENT: atraumatic, normocephalic Eye exam: PRESENT: conjunctiva pink, EOMI, PERRLA. ABSENT: scleral icterus Ear exam: PRESENT: normal external ear exam Mouth exam: PRESENT: moist, tongue midline Neck exam: ABSENT: carotid bruit, JVD, lymphadenopathy, thyromegaly Respiratory exam: PRESENT: accessory muscle use, crackles, prolonged expiratory phas, rhonchi, symmetrical, tachypnea. ABSENT: wheezes Cardiovascular exam: PRESENT: RRR. ABSENT: diastolic murmur, rubs, systolic murmur Pulses: PRESENT: normal dorsalis pedis pul Vascular exam: PRESENT: normal capillary refill GI/Abdominal exam: PRESENT: normal bowel sounds, soft. ABSENT: distended, guarding, mass, organolmegaly, rebound, tenderness Rectal exam: PRESENT: deferred Extremities exam: PRESENT: other - Right lower medial leg with 4 x 4 centimeter eschar and sanguinous drainage Musculoskeletal exam: PRESENT: ambulatory, tenderness Neurological exam: PRESENT: alert, awake, oriented to person, oriented to place, oriented to time, oriented to situation, CN II-XII grossly intact. ABSENT: motor sensory deficit Psychiatric exam: PRESENT: appropriate affect, normal mood. ABSENT: homicidal ideation, suicidal ideation Skin exam: PRESENT: erythema, other - Right lower medial leg with 4 x 4 centimeter eschar and sanguinous drainage. ABSENT: dry, intact Results Laboratory Results: 10/22/19 21:40 10/23/19 03:11 10/22/19 10/22/19 10/22/19 21:40 21:40 21:40 WBC 11.2 H RBC 4.09 Hgb 12.4 Hct 37.8 MCV 93 MCH 30.2 MCHC 32.7 RDW 13.9 Plt Count 267 Seg Neutrophils % Not Reportable VBG pH 7.32 VBG pCO2 62.9 VBG HCO3 31.9 VBG Base Excess 4.1 Sodium 138.4 Potassium 3.4 L Chloride 99 Carbon Dioxide 29 Anion Gap 10 BUN 11 Creatinine 0.69 Est GFR ( Amer) > 60 Glucose 198 H Lactic Acid Calcium 8.8 Magnesium Total Bilirubin 0.5 AST 30 Alkaline Phosphatase 86 Total Protein 6.5 Albumin 3.3 L Urine Color Urine Appearance Urine pH Ur Specific [place] Urine Protein Urine Glucose (UA) Urine Ketones Urine Blood Urine RBC (Auto) 10/22/19 10/23/19 10/23/19 21:40 00:15 00:32 WBC RBC Hgb Hct MCV MCH MCHC RDW Plt Count Seg Neutrophils % VBG pH VBG pCO2 VBG HCO3 VBG Base Excess Sodium Potassium Chloride Carbon Dioxide Anion Gap BUN Creatinine Est GFR ( Amer) Glucose Lactic Acid 1.7 1.9 Calcium Magnesium Total Bilirubin AST Alkaline Phosphatase Total Protein Albumin Urine Color YELLOW Urine Appearance CLEAR Urine pH 6.0 Ur Specific [place] 1.017 Urine Protein 30 H Urine Glucose (UA) NEGATIVE Urine Ketones NEGATIVE Urine Blood NEGATIVE Urine RBC (Auto) 7 10/23/19 10/23/19 10/23/19 03:11 03:11 03:11 WBC RBC Hgb Hct MCV MCH MCHC RDW Plt Count Seg Neutrophils % VBG pH VBG pCO2 VBG HCO3 VBG Base Excess Sodium 138.1 Potassium 3.6 Chloride 102 Carbon Dioxide 29 Anion Gap 7 BUN 12 Creatinine 0.51 L Est GFR ( Amer) > 60 Glucose 132 H Lactic Acid 1.5 Calcium 8.5 Magnesium 2.0 Total Bilirubin AST Alkaline Phosphatase Total Protein Albumin Urine Color Urine Appearance Urine pH Ur Specific [place] Urine Protein Urine Glucose (UA) Urine Ketones Urine Blood Urine RBC (Auto) 10/22/19 21:40 NT-Pro-B Natriuret Pep 679 H Impressions: Chest X-Ray 10/22/19 21:24 IMPRESSION: COPD. Lungs are clear copyright 2011 [employer]- All Rights Reserved Tibia/Fibula X-Ray 10/22/19 23:28 IMPRESSION: 1. Indistinctness of the tip of the medial malleolus which appears new when compared to the prior study. Findings raise concern for possible osteomyelitis. 2. Lucency within the soft tissues adjacent to the distal medial right lower leg and inferior to the medial malleolus which could represent areas of soft tissue ulceration and/or infection. 3. Mild generalized osteopenia. Assessment and Plan - Diagnosis (1) Leg osteomyelitis, right Is this a current diagnosis for this admission?: Yes Plan: Elevation, empiric antibiotics, follow-up blood culture, CBC and surgical cons ult (2) Cellulitis of right lower extremity Is this a current diagnosis for this admission?: Yes Plan: Please see #1 (3) History of panic attacks Is this a current diagnosis for this admission?: Yes Plan: Anticipate given hospitalization, follow-up medication reconciliation. (5) COPD exacerbation Is this a current diagnosis for this admission?: Yes Plan: Albuterol, Atrovent, incentive spirometry and supplemental oxygen (6) Acute exacerbation of chronic bronchitis Is this a current diagnosis for this admission?: Yes Plan: Albuterol, Atrovent, incentive spirometry empiric antibiotics. - Time Time Spent with patient: 25-34 minutes - Inpatient Certification Medical Necessity: Need Close Monitoring Due to Risk of Patient Decompensation
[2019-10-23] MEDS ORDERED: PIPERACILLIN SODIUM/TAZOBACTAM 3.375 GM in NORMAL SALINE 100 ML IV SCH (06:00)
[2019-10-23] MEDS: HEPARIN SOD (PORCINE) 5,000 UNIT/ML 1 ML VIAL SUBCUT SCH ×3 (06:32→21:39)
[2019-10-23] MEDS: IPRATROPIUM/ALBUTEROL 0.5-2.5 MG/3 ML AMPUL NEB SCH ×2 (07:56→16:05)
[2019-10-23] MEDS: DOCUSATE SODIUM 100 MG CAPSULE PO SCH ×2 (09:17→17:31)
[2019-10-23] MEDS ORDERED: FUROSEMIDE 20 MG TABLET PO SCH (10:00)
[2019-10-23] MEDS ORDERED: (PENDING PHARMACY ID) (Escitalopram Oxalate [Escitalopram Oxalate] 20 MG) PO SCH (10:00)
[2019-10-23] MEDS ORDERED: DULOXETINE HCL PO SCH (10:00)
[2019-10-23] MEDS ORDERED: MORPHINE SULFATE PO SCH (10:00)
[2019-10-23] MEDS: PIPERACILLIN SODIUM/TAZOBACTAM 2.25 GM in NORMAL SALINE 50 ML IV SCH ×3 (12:40→23:34)
[2019-10-23] MEDS: PREDNISONE 10 MG TABLET PO SCH (12:53)
[2019-10-23] MEDS: MORPHINE SULFATE SR 30 MG TABLET PO SCH ×2 (12:53→21:39)
[2019-10-23] MEDS: FLUTICASONE/VILANTEROL 100-25 MCG/DOSE IH SCH (12:54)
[2019-10-23] MEDS: DULOXETINE HCL 30 MG CAPSULE.DR PO SCH (13:04)
[2019-10-23] MEDS: ESCITALOPRAM OXALATE 10 MG TABLET PO SCH (13:05)
[2019-10-23] MEDS: FUROSEMIDE 40 MG TABLET PO SCH (13:05)
[2019-10-23] MEDS: CLOPIDOGREL BISULFATE 75 MG TABLET PO SCH (13:06)
[2019-10-23] MEDS: ALPRAZOLAM 0.5 MG TABLET PO SCH ×3 (13:06→21:39)
--- NOTE | 2019-10-23 13:32 | PDOC CONSULTATION ---
Consultation Consult Date: 10/23/19 Provider Consulted: TODD NEW Consult reason:: Right leg wounds and possible osteomyelitis History of Present Illness Admission Date/PCP: 10/23/19 02:34 BOLIVAR YADAV MD History of Present Illness: HOWARD GR is a 73 year old female with a past medical history of COPD, chronic bronchitis, opiate dependent chronic pain and anxiety who presents with 2 weeks of erythema swelling, pain and large ulcer to the medial aspect of her right leg involving the medial malleolus. Patient was seen in the emergency department October 17 but signed out AGAINST MEDICAL ADVICE. She did receive a prescription for Keflex but was unimproved. She returns with complaints of worsening leg wound. She reports multiple right leg wounds some of this occurred following a trauma 2 months ago. An x-ray of the right leg is been done which demonstrates the presence of possible osteomyelitis of the right distal medial malleolus. Past Medical History Cardiac Medical History: Reports: Congestive Heart Failure Pulmonary Medical History: Reports: Bronchitis, Chronic Obstructive Pulmonary Disease (COPD), Pneumonia GI Medical History: Reports: Gastroesophageal Reflux Disease Musculoskeltal Medical History: Reports: Arthritis - degenerative disc dx (back); cervical discs bulging Psychiatric Medical History: Reports: Depression Past Surgical History Past Surgical History: Reports: Orthopedic Surgery - L hip replacement; multiple hip surgeries Social History Smoking Status: Unknown if Ever Smoked Frequency of Alcohol Use: None Drugs: None Hx Prescription Drug Abuse: Yes - On morphine sulfate and hydrocodone for back pains on pain management - Advance Directive Resuscitation Status: Full Code Family History Family History: Hypertension Parental Family History Reviewed: No Children Family History Reviewed: No Sibling(s) Family History Reviewed.: No Medication/Allergy Home Medications: Alprazolam [Xanax 0.5 mg Tablet] 0.5 mg PO QID 10/23/19 Clopidogrel Bisulfate [Plavix 75 mg Tablet] 75 mg PO DAILY 10/23/19 Duloxetine HCl 120 mg PO DAILY 10/23/19 Escitalopram Oxalate 20 mg PO DAILY 10/23/19 Fluticasone/Vilanterol [Breo Ellipta 100-25 Mcg INH] 1 puff IH DAILY 10/23/19 Furosemide [Lasix 20 mg Tablet] 20 mg PO DAILY 10/23/19 Hydromorphone HCl [Dilaudid] 4 mg PO Q4HP PRN 10/23/19 Magnesium Oxide [Magnesium] 400 mg PO BID 10/23/19 Morphine Sulfate [Morphine Sulfate ER] 60 mg PO Q12 10/23/19 Potassium Chloride [Klor-Con M20] 20 meq PO DAILY 10/23/19 Prednisone 15 mg PO DAILY 10/23/19 Tizanidine HCl [Zanaflex] 2 mg PO Q8 10/23/19 Allergies/Adverse Reactions: acetaminophen [From Vicodin] Allergy (Verified 10/16/19 16:13) amoxicillin [From Augmentin] Allergy (Verified 10/22/19 21:42) clavulanic acid [From Augmentin] Allergy (Verified 10/22/19 21:42) hydrocodone [From Vicodin] Allergy (Verified 10/16/19 16:13) Sulfa (Sulfonamide Antibiotics) Allergy (Verified 10/16/19 16:13) tetracycline Allergy (Verified 10/16/19 16:13) Physical Exam Vital Signs: Temp Pulse Resp BP Pulse Ox 97.6 F 95 16 133/61 H 100 10/23/19 05:27 10/23/19 07:00 10/23/19 05:27 10/23/19 05:27 10/23/19 05:27 Intake & Output 10/22/19 10/23/19 10/24/19 06:59 06:59 06:59 Intake Total 100 1250 Balance 100 1250 Weight 47.5 kg General appearance: PRESENT: no acute distress, thin Head exam: PRESENT: atraumatic Eye exam: PRESENT: EOMI Mouth exam: PRESENT: moist, neck supple Teeth exam: PRESENT: dental caries, poor dentation Neck exam: PRESENT: full ROM Respiratory exam: PRESENT: clear to auscultation verónica Cardiovascular exam: PRESENT: RRR GI/Abdominal exam: PRESENT: normal bowel sounds, soft Rectal exam: PRESENT: deferred Extremities exam: PRESENT: +2 edema - Right leg sign palpable posterior tibialis pulses, diffuse erythema from the middle third of the leg and entire foot and toes: Multiple ulcerations located anterior medial aspect of the leg with a large run located just above the medial malleolus covered with necrotic tissue Neurological exam: PRESENT: alert, awake Psychiatric exam: PRESENT: anxious Skin exam: PRESENT: other - See above Results Laboratory Results: 10/22/19 21:40 10/23/19 03:11 10/22/19 10/22/19 10/22/19 21:40 21:40 21:40 WBC 11.2 H RBC 4.09 Hgb 12.4 Hct 37.8 MCV 93 MCH 30.2 MCHC 32.7 RDW 13.9 Plt Count 267 Seg Neutrophils % Not Reportable VBG pH 7.32 VBG pCO2 62.9 VBG HCO3 31.9 VBG Base Excess 4.1 Sodium 138.4 Potassium 3.4 L Chloride 99 Carbon Dioxide 29 Anion Gap 10 BUN 11 Creatinine 0.69 Est GFR ( Amer) > 60 Glucose 198 H Lactic Acid Calcium 8.8 Magnesium Total Bilirubin 0.5 AST 30 Alkaline Phosphatase 86 C-Reactive Protein Total Protein 6.5 Albumin 3.3 L Urine Color Urine Appearance Urine pH Ur Specific [place] Urine Protein Urine Glucose (UA) Urine Ketones Urine Blood Urine RBC (Auto) 10/22/19 10/23/19 10/23/19 21:40 00:15 00:32 WBC RBC Hgb Hct MCV MCH MCHC RDW Plt Count Seg Neutrophils % VBG pH VBG pCO2 VBG HCO3 VBG Base Excess Sodium Potassium Chloride Carbon Dioxide Anion Gap BUN Creatinine Est GFR ( Amer) Glucose Lactic Acid 1.7 1.9 Calcium Magnesium Total Bilirubin AST Alkaline Phosphatase C-Reactive Protein Total Protein Albumin Urine Color YELLOW Urine Appearance CLEAR Urine pH 6.0 Ur Specific [place] 1.017 Urine Protein 30 H Urine Glucose (UA) NEGATIVE Urine Ketones NEGATIVE Urine Blood NEGATIVE Urine RBC (Auto) 7 10/23/19 10/23/19 10/23/19 03:11 03:11 03:11 WBC RBC Hgb Hct MCV MCH MCHC RDW Plt Count Seg Neutrophils % VBG pH VBG pCO2 VBG HCO3 VBG Base Excess Sodium 138.1 Potassium 3.6 Chloride 102 Carbon Dioxide 29 Anion Gap 7 BUN 12 Creatinine 0.51 L Est GFR ( Amer) > 60 Glucose 132 H Lactic Acid 1.5 Calcium 8.5 Magnesium 2.0 Total Bilirubin AST Alkaline Phosphatase C-Reactive Protein Total Protein Albumin Urine Color Urine Appearance Urine pH Ur Specific [place] Urine Protein Urine Glucose (UA) Urine Ketones Urine Blood Urine RBC (Auto) 10/23/19 11:40 WBC RBC Hgb Hct MCV MCH MCHC RDW Plt Count Seg Neutrophils % VBG pH VBG pCO2 VBG HCO3 VBG Base Excess Sodium Potassium Chloride Carbon Dioxide Anion Gap BUN Creatinine Est GFR ( Amer) Glucose Lactic Acid Calcium Magnesium Total Bilirubin AST Alkaline Phosphatase C-Reactive Protein 69.7 H Total Protein Albumin Urine Color Urine Appearance Urine pH Ur Specific [place] Urine Protein Urine Glucose (UA) Urine Ketones Urine Blood Urine RBC (Auto) 10/22/19 21:40 NT-Pro-B Natriuret Pep 679 H Impressions: Chest X-Ray 10/22/19 21:24 IMPRESSION: COPD. Lungs are clear copyright 2010 [employer]- All Rights Reserved Tibia/Fibula X-Ray 10/22/19 23:28 IMPRESSION: 1. Indistinctness of the tip of the medial malleolus which appears new when compared to the prior study. Findings raise concern for possible osteomyelitis. 2. Lucency within the soft tissues adjacent to the distal medial right lower leg and inferior to the medial malleolus which could represent areas of soft tissue ulceration and/or infection. 3. Mild generalized osteopenia. Assessment & Plan - Diagnosis (1) Leg osteomyelitis, right Is this a current diagnosis for this admission?: Yes (2) Wound of right lower extremity Qualifiers: Encounter type: initial encounter Qualified Code(s): S81.801A - Unspecified open wound, right lower leg, initial encounter Is this a current diagnosis for this admission?: Yes - Plan Summary Plan Summary: Assessment: Multiple right leg ulcerations with a large wound located on the medial aspect just above the tibial malleolus X-ray of the right leg reveals possible osteomyelitis of the tip of the medial malleolus Physical exam of the right leg reveals diffuse erythema starting from the middle third of the leg down to the toes with severe edema History of heavy smoking until 2 years ago COPD exacerbation Plan: MRI with IV contrast of the right leg and foot to rule out osteomyelitis today A long conversation has been obtained with the patient in presence of the nurse: No final determination of the course of treatment can be provided to the patient until the MRI has been done and resulted. Should the patient have osteomyelitis of the tibia, recommendation would be to perform a BKA versus AKA If the patient does not have osteomyelitis, debridement and conservative management of the right leg cellulitis will be recommended In the meantime, normal saline wet-to-dry dressing changes of the right leg wounds BID
--- NOTE | 2019-10-23 15:44 | RADIOLOGY REPORT (SQ) ---
EXAM DESCRIPTION: MRI RT LOWER EXTREMITY WITHOUT COMPLETED DATE/TIME: 10/23/2019 3:19 pm REASON FOR STUDY: R/o osteo R tibia; ask radiologist about contrast COMPARISON: None. TECHNIQUE: Multiplanar imaging of the right tibia fibula to include fat and fluid sensitive sequence s. LIMITATIONS: Motion. Positioning. FINDINGS: BONE MARROW: Normal. Preserved T1 signal. No cortical breakthrough. SOFT TISSUES: Diffuse cellulitis, more advanced in the proximal tibia. No abscess. OTHER: No other significant finding. IMPRESSION: NO EVIDENCE FOR OSTEOMYELITIS. TECHNICAL DOCUMENTATION: JOB ID: [id number] [employer]- All Rights Reserved Reading location - IP/workstation name: [email or web address]
[2019-10-23] MEDS: MAGNESIUM OXIDE 400 MG TABLET PO SCH (17:28)
[2019-10-23] MEDS ORDERED: (PENDING PHARMACY ID) (Magnesium Oxide [Magnesium] 400 MG) PO SCH (18:00)
[2019-10-24] MEDS: IPRATROPIUM/ALBUTEROL 0.5-2.5 MG/3 ML AMPUL NEB SCH ×3 (00:16→16:34)
[2019-10-24 05:22] LABS: ABSOLUTE EOSINOPHILS # (AUTO) 0.1 10^3/uL (0.0-0.6); ABSOLUTE LYMPHOCYTES (AUTO) 1.8 10^3/uL (0.5-4.7); ABSOLUTE MONOCYTES (AUTO) 0.8 10^3/uL (0.1-1.4); ABSOLUTE NEUT (AUTO) 7.4 10^3/uL (1.7-8.2); BASOPHILS % (AUTO) 0.3 % (0-2); EOSINOPHILS % (AUTO) 1.3 % (0-6); HEMATOCRIT 35.1 % (36.0-47.0); HEMOGLOBIN 11.7 g/dL (12.0-15.5); LYMPHOCYTES % (AUTO) 17.6 % (13-45); MEAN CORPUSCULAR HEMOGLOBIN 30.3 pg (27.0-33.4); MEAN CORPUSCULAR HGB CONC 33.2 g/dL (32.0-36.0); MEAN CORPUSCULAR VOLUME 91 fl (80-97); MONOCYTES % (AUTO) 7.6 % (3-13); PLATELET COUNT 291 10^3/uL (150-450); RED BLOOD COUNT 3.85 10^6/uL (3.72-5.28); RED CELL DISTRIBUTION WIDTH 13.9 % (11.5-14.0); SEGMENTED NEUTROPHILS % (AUTO) 73.2 % (42-78); TOTAL CELLS COUNTED % (AUTO) 100 %; WHITE BLOOD COUNT 10.1 10^3/uL (4.0-10.5)
[2019-10-24 05:26] LABS: ALBUMIN 2.6 g/dL (3.5-5.0); ALKALINE PHOSPHATASE 65 U/L (38-126); ANION GAP 9 (5-19); ASPARTATE AMINO TRANSFERASE 27 U/L (14-36); BILIRUBIN,DIRECT 0.1 mg/dL (0.0-0.4); BILIRUBIN,TOTAL 0.3 mg/dL (0.2-1.3); BLOOD UREA NITROGEN 6 mg/dL (7-20); CALCIUM 8.1 mg/dL (8.4-10.2); CARBON DIOXIDE 27 mmol/L (22-30); CHLORIDE 107 mmol/L (98-107); GLUCOSE 86 mg/dL (75-110); TOTAL PROTEIN 5.4 g/dL (6.3-8.2)
[2019-10-24 05:30] LABS: POTASSIUM 2.5 mmol/L (3.6-5.0)
[2019-10-24] MEDS: PIPERACILLIN SODIUM/TAZOBACTAM 2.25 GM in NORMAL SALINE 50 ML IV SCH ×4 (05:35→23:47)
[2019-10-24] MEDS: HEPARIN SOD (PORCINE) 5,000 UNIT/ML 1 ML VIAL SUBCUT SCH ×3 (05:36→22:30)
[2019-10-24] MEDS: DOCUSATE SODIUM 100 MG CAPSULE PO SCH ×2 (10:33→17:04)
[2019-10-24] MEDS: POTASSIUM CHLORIDE 10 MEQ TABLET.ER PO SCH ×3 (10:40→17:11)
[2019-10-24] MEDS: DULOXETINE HCL 30 MG CAPSULE.DR PO SCH (10:40)
[2019-10-24] MEDS: FUROSEMIDE 40 MG TABLET PO SCH (10:40)
[2019-10-24] MEDS: ALPRAZOLAM 0.5 MG TABLET PO SCH ×4 (10:41→22:32)
[2019-10-24] MEDS: MAGNESIUM OXIDE 400 MG TABLET PO SCH ×2 (10:41→17:11)
[2019-10-24] MEDS: MORPHINE SULFATE SR 30 MG TABLET PO SCH ×2 (10:41→22:31)
[2019-10-24] MEDS: PREDNISONE 10 MG TABLET PO SCH (10:42)
[2019-10-24] MEDS: FLUTICASONE/VILANTEROL 100-25 MCG/DOSE IH SCH (10:42)
[2019-10-24] MEDS: ESCITALOPRAM OXALATE 10 MG TABLET PO SCH (10:42)
[2019-10-24] MEDS: CLOPIDOGREL BISULFATE 75 MG TABLET PO SCH (10:42)
[2019-10-24] MEDS: VANCOMYCIN HCL 750 MG in DEXTROSE 5%-WATER 250 ML IV SCH (10:43)
--- NOTE | 2019-10-24 11:00 | PDOC PROGRESS REPORT ---
Subjective Progress Note for:: 10/24/19 Subjective:: HOWARD GR is a 73 year old female with a past medical history of COPD, chronic bronchitis, opiate dependent chronic pain and anxiety who presents with 2 weeks of erythema swelling, pain and large ulcer to the medial aspect of her right leg involving the medial malleolus. Patient was seen in the emergency department October 17 but signed out AGAINST MEDICAL ADVICE. She did receive a prescription for Keflex but was unimproved. She returns with complaints of worsening leg wound and COPD exacerbation with bronchitis. Labs reveal leukocytosis, leg x-ray is worrisome for osteomyelitis involving the medial malleolus. She started on empiric antibiotics and referred to the hospitalist for admission. 10/24/2019. No acute events overnight. Patient comfortably sitting in bed. Reporting improvement of right lower extremity pain, denies any fever, chills, nausea, vomiting, diarrhea, constipation or any urinary symptoms. Reason For Visit: COPD EXACERBATION, RIGHT LEG OSTEO AND CELLULITIS Physical Exam Vital Signs: Temp Pulse Resp BP Pulse Ox 98.4 F 101 H 16 118/57 L 100 10/24/19 08:13 10/24/19 08:13 10/24/19 08:13 10/24/19 08:13 10/24/19 08:13 Intake & Output 10/23/19 10/24/19 10/25/19 06:59 06:59 06:59 Intake Total 100 2770 Balance 100 2770 Weight 47.5 kg 49 kg General appearance: PRESENT: no acute distress, well-developed, well-nourished Head exam: PRESENT: atraumatic, normocephalic Neck exam: ABSENT: carotid bruit, JVD, lymphadenopathy, thyromegaly Respiratory exam: PRESENT: clear to auscultation verónica. ABSENT: rales, rhonchi, wheezes Cardiovascular exam: PRESENT: RRR. ABSENT: diastolic murmur, rubs, systolic murmur Pulses: PRESENT: normal dorsalis pedis pul Vascular exam: PRESENT: normal capillary refill GI/Abdominal exam: PRESENT: normal bowel sounds, soft. ABSENT: distended, guarding, mass, organolmegaly, rebound, tenderness Rectal exam: PRESENT: deferred Extremities exam: PRESENT: full ROM. ABSENT: calf tenderness, clubbing, pedal edema Musculoskeletal exam: PRESENT: tenderness - Right lower extremity below the knee multiple shallow ulcers, with circumferential swelling and tenderness no active discharge. Neurological exam: PRESENT: alert, awake, oriented to person, oriented to place, oriented to time, oriented to situation, CN II-XII grossly intact. ABSENT: motor sensory deficit Psychiatric exam: PRESENT: appropriate affect, normal mood. ABSENT: homicidal ideation, suicidal ideation Skin exam: PRESENT: dry, intact, warm. ABSENT: cyanosis, rash Results Laboratory Results: 10/24/19 04:33 10/24/19 04:33 10/23/19 10/24/19 10/24/19 11:40 04:33 04:33 WBC 10.1 RBC 3.85 Hgb 11.7 L Hct 35.1 L MCV 91 MCH 30.3 MCHC 33.2 RDW 13.9 Plt Count 291 Seg Neutrophils % 73.2 Sodium 143.1 Potassium 2.5 L* Chloride 107 Carbon Dioxide 27 Anion Gap 9 BUN 6 L Creatinine 0.48 L Est GFR ( Amer) > 60 Glucose 86 Calcium 8.1 L Total Bilirubin 0.3 AST 27 Alkaline Phosphatase 65 C-Reactive Protein 69.7 H Total Protein 5.4 L Albumin 2.6 L 10/22/19 21:40 NT-Pro-B Natriuret Pep 679 H Impressions: Chest X-Ray 10/22/19 21:24 IMPRESSION: COPD. Lungs are clear copyright 2011 [employer]- All Rights Reserved Tibia/Fibula X-Ray 10/22/19 23:28 IMPRESSION: 1. Indistinctness of the tip of the medial malleolus which appears new when compared to the prior study. Findings raise concern for possible osteomyelitis. 2. Lucency within the soft tissues adjacent to the distal medial right lower leg and inferior to the medial malleolus which could represent areas of soft tissue ulceration and/or infection. 3. Mild generalized osteopenia. Lower Extremity MRI 10/23/19 00:00 IMPRESSION: NO EVIDENCE FOR OSTEOMYELITIS. Assessment and Plan - Diagnosis (1) Cellulitis of right lower extremity Is this a current diagnosis for this admission?: Yes Plan: CRP 69.7, ESR 66. X-ray possible osteomyelitis. MRI positive for diffuse cellulitis, negative for osteomyelitis or abscess. Day 2 IV antibiotics. Day 2 IV vancomycin. Day 2 IV Zosyn. Cultures no growth so far. Surgery consulted. Pending reevaluation as per MRI report. Continue PEG IV antibiotics, follow-up blood and wound culture, follow-up surgery recommendations. (2) COPD exacerbation Is this a current diagnosis for this admission?: Yes Plan: Improving. SPO2 WNL on RA. History of non-O2 dependent COPD. Continue albuterol, Atrovent, incentive spirometry and supplemental oxygen (3) History of panic attacks Is this a current diagnosis for this admission?: Yes Plan: Resume home meds. (4) Leg osteomyelitis, right Is this a current diagnosis for this admission?: Yes Plan: Ruled out. Please refer to #1
--- NOTE | 2019-10-24 12:16 | PDOC PROGRESS REPORT ---
Subjective Progress Note for:: 10/24/19 Subjective:: Patient without complaints, she reports improvement of the right leg symptoms Reason For Visit: COPD EXACERBATION, RIGHT LEG OSTEO AND CELLULITIS Physical Exam Vital Signs: Temp Pulse Resp BP Pulse Ox 98.4 F 101 H 16 118/57 L 100 10/24/19 08:13 10/24/19 08:13 10/24/19 08:13 10/24/19 08:13 10/24/19 08:13 Intake & Output 10/23/19 10/24/19 10/25/19 06:59 06:59 06:59 Intake Total 100 2770 Balance 100 2770 Weight 47.5 kg 49 kg Extremities exam: PRESENT: other - Right leg and foot = presence of erythema wit h edema, multiple small anterior leg wounds, covered with crusty material and medial lower leg wound covered with necrotic tissue Results Laboratory Results: 10/24/19 04:33 10/24/19 04:33 10/23/19 10/24/19 10/24/19 11:40 04:33 04:33 WBC 10.1 RBC 3.85 Hgb 11.7 L Hct 35.1 L MCV 91 MCH 30.3 MCHC 33.2 RDW 13.9 Plt Count 291 Seg Neutrophils % 73.2 Sodium 143.1 Potassium 2.5 L* Chloride 107 Carbon Dioxide 27 Anion Gap 9 BUN 6 L Creatinine 0.48 L Est GFR ( Amer) > 60 Glucose 86 Calcium 8.1 L Total Bilirubin 0.3 AST 27 Alkaline Phosphatase 65 C-Reactive Protein 69.7 H Total Protein 5.4 L Albumin 2.6 L 10/22/19 21:40 NT-Pro-B Natriuret Pep 679 H Impressions: Chest X-Ray 10/22/19 21:24 IMPRESSION: COPD. Lungs are clear copyright 2011 [employer] All Rights Reserved Tibia/Fibula X-Ray 10/22/19 23:28 IMPRESSION: 1. Indistinctness of the tip of the medial malleolus which appears new when compared to the prior study. Findings raise concern for possible osteomyelitis. 2. Lucency within the soft tissues adjacent to the distal medial right lower leg and inferior to the medial malleolus which could represent areas of soft tissue ulceration and/or infection. 3. Mild generalized osteopenia. Lower Extremity MRI 10/23/19 00:00 IMPRESSION: NO EVIDENCE FOR OSTEOMYELITIS. Assessment & Plan - Diagnosis (1) Leg osteomyelitis, right Is this a current diagnosis for this admission?: Yes (2) Wound of right lower extremity Qualifiers: Encounter type: initial encounter Qualified Code(s): S81.801A - Unspecified open wound, right lower leg, initial encounter Is this a current diagnosis for this admission?: Yes - Time Time Spent with patient: 25-34 minutes - Plan Summary Plan Summary: Assessment: Right leg MRI negative for osteomyelitis Presence of large right lower leg medial aspect ulcer covered with necrotic tissue Presence of additional anterior right leg small ulcers None: Right leg multiple ulcer debridement tomorrow N.p.o. after midnight Continue IV fluids
[2019-10-24] MEDS: HYDROMORPHONE HCL 2 MG TABLET PO PRN (17:10)
[2019-10-25] MEDS: IPRATROPIUM/ALBUTEROL 0.5-2.5 MG/3 ML AMPUL NEB SCH ×3 (00:01→16:25)
[2019-10-25] MEDS: PIPERACILLIN SODIUM/TAZOBACTAM 2.25 GM in NORMAL SALINE 50 ML IV SCH ×4 (05:14→23:48)
[2019-10-25] MEDS: HEPARIN SOD (PORCINE) 5,000 UNIT/ML 1 ML VIAL SUBCUT SCH ×3 (05:17→21:50)
[2019-10-25 05:27] LABS: ABSOLUTE LYMPHOCYTES (AUTO) 1.1 10^3/uL (0.5-4.7); ABSOLUTE NEUT (AUTO) 8.2 10^3/uL (1.7-8.2); BASOPHILS % (AUTO) 0.2 % (0-2); EOSINOPHILS % (AUTO) 0.1 % (0-6); HEMOGLOBIN 10.8 g/dL (12.0-15.5); LYMPHOCYTES % (AUTO) 10.6 % (13-45); MEAN CORPUSCULAR HEMOGLOBIN 29.9 pg (27.0-33.4); MEAN CORPUSCULAR HGB CONC 32.7 g/dL (32.0-36.0); MEAN CORPUSCULAR VOLUME 91 fl (80-97); MONOCYTES % (AUTO) 9.3 % (3-13); PLATELET COUNT 322 10^3/uL (150-450); RED BLOOD COUNT 3.61 10^6/uL (3.72-5.28); RED CELL DISTRIBUTION WIDTH 13.9 % (11.5-14.0); SEGMENTED NEUTROPHILS % (AUTO) 79.8 % (42-78); TOTAL CELLS COUNTED % (AUTO) 100 %; WHITE BLOOD COUNT 10.3 10^3/uL (4.0-10.5)
[2019-10-25 05:55] LABS: ALBUMIN 2.6 g/dL (3.5-5.0); ALKALINE PHOSPHATASE 88 U/L (38-126); ANION GAP 6 (5-19); ASPARTATE AMINO TRANSFERASE 28 U/L (14-36); BILIRUBIN,DIRECT 0.1 mg/dL (0.0-0.4); BILIRUBIN,TOTAL 0.2 mg/dL (0.2-1.3); BLOOD UREA NITROGEN 8 mg/dL (7-20); CALCIUM 8.8 mg/dL (8.4-10.2); CARBON DIOXIDE 29 mmol/L (22-30); CHLORIDE 110 mmol/L (98-107); GLUCOSE 116 mg/dL (75-110); POTASSIUM 4.4 mmol/L (3.6-5.0); TOTAL PROTEIN 5.2 g/dL (6.3-8.2)
[2019-10-25] MEDS ORDERED: FENTANYL CITRATE INJ/PF 100 MCG/2 ML AMPUL ONE (07:43)
[2019-10-25] MEDS ORDERED: PROPOFOL INJ 200 MG/20 ML VIAL IV ONE (07:43)
[2019-10-25] MEDS ORDERED: KETAMINE HCL INJ 500 MG/10 ML VIAL ONE (07:43)
[2019-10-25] MEDS ORDERED: LIDOCAINE 1% INJ-PF (10 MG/ML) 30 ML SDV ONE (07:48)
[2019-10-25] MEDS ORDERED: MIDAZOLAM 2 MG/2 ML INJ ONE (08:50)
[2019-10-25] MEDS ORDERED: PROMETHAZINE HCL INJ 25 MG/1 ML VIAL IV PRN (09:13)
[2019-10-25] MEDS ORDERED: MEPERIDINE HCL/PF INJ 25 MG/1 ML DISP.SYRIN IV PRN (09:13)
[2019-10-25] MEDS ORDERED: FENTANYL CITRATE INJ/PF 100 MCG/2 ML AMPUL IV PRN ×3 (09:13)
[2019-10-25] MEDS ORDERED: MORPHINE SULFATE 10 MG/ML INJ IV PRN (09:13)
[2019-10-25] MEDS ORDERED: DIPHENHYDRAMINE HCL 50 MG/ML VIAL IV PRN (09:13)
--- NOTE | 2019-10-25 09:16 | PDOC PROGRESS REPORT ---
Subjective Progress Note for:: 10/25/19 Subjective:: HOWARD GR is a 73 year old female with a past medical history of COPD, chronic bronchitis, opiate dependent chronic pain and anxiety who presents with 2 weeks of erythema swelling, pain and large ulcer to the medial aspect of her right leg involving the medial malleolus. Patient was seen in the emergency department October 17 but signed out AGAINST MEDICAL ADVICE. She did receive a prescription for Keflex but was unimproved. She returns with complaints of worsening leg wound and COPD exacerbation with bronchitis. Labs reveal leukocytosis, leg x-ray is worrisome for osteomyelitis involving the medial malleolus. She started on empiric antibiotics and referred to the hospitalist for admission. 10/24/2019. No acute events overnight. Patient comfortably sitting in bed. Reporting improvement of right lower extremity pain, denies any fever, chills, nausea, vomiting, diarrhea, constipation or any urinary symptoms. 10/25/2019. No acute events overnight. Patient currently resting in bed about to be transferred to operating room for I&D of her right lower extremity. Denies any fever, chills, nausea, vomiting, diarrhea, constipation or any urinary symptoms. Reason For Visit: COPD EXACERBATION, RIGHT LEG OSTEO AND CELLULITIS Physical Exam Vital Signs: Temp Pulse Resp BP Pulse Ox 98.2 F 100 18 138/63 H 95 10/25/19 07:32 10/25/19 08:19 10/25/19 08:19 10/25/19 07:32 10/25/19 08:19 Intake & Output 10/24/19 10/25/19 10/26/19 06:59 06:59 06:59 Intake Total 2770 790 50 Balance 2770 790 50 Weight 49 kg 48.8 kg General appearance: PRESENT: no acute distress, well-developed, well-nourished Head exam: PRESENT: atraumatic, normocephalic Respiratory exam: PRESENT: clear to auscultation verónica. ABSENT: rales, rhonchi, wheezes Cardiovascular exam: PRESENT: RRR. ABSENT: diastolic murmur, rubs, systolic murmur GI/Abdominal exam: PRESENT: normal bowel sounds, soft. ABSENT: distended, guarding, mass, organolmegaly, rebound, tenderness Neurological exam: PRESENT: alert, awake, oriented to person, oriented to place, oriented to time, oriented to situation, CN II-XII grossly intact. ABSENT: motor sensory deficit Skin exam: PRESENT: other - Right lower extremity below-knee multiple areas of shallow wounds covered with necrotic tissue, with surrounding erythema. No active discharge. Neurovascularly intact. Results Laboratory Results: 10/25/19 04:39 10/25/19 04:39 10/25/19 10/25/19 04:39 04:39 WBC 10.3 RBC 3.61 L Hgb 10.8 L Hct 33.0 L MCV 91 MCH 29.9 MCHC 32.7 RDW 13.9 Plt Count 322 Seg Neutrophils % 79.8 H Sodium 145.4 H Potassium 4.4 Chloride 110 H Carbon Dioxide 29 Anion Gap 6 BUN 8 Creatinine 0.56 Est GFR ( Amer) > 60 Glucose 116 H Calcium 8.8 Magnesium 1.9 Total Bilirubin 0.2 AST 28 Alkaline Phosphatase 88 Total Protein 5.2 L Albumin 2.6 L 10/23/19 00:15 Clean Catch Midstream Urine Culture - Final Mixed Urogenital Rosa 10/22/19 21:40 NT-Pro-B Natriuret Pep 679 H Impressions: Chest X-Ray 10/22/19 21:24 IMPRESSION: COPD. Lungs are clear copyright 2011 [employer]- All Rights Reserved Tibia/Fibula X-Ray 10/22/19 23:28 IMPRESSION: 1. Indistinctness of the tip of the medial malleolus which appears new when compared to the prior study. Findings raise concern for possible osteomyelitis. 2. Lucency within the soft tissues adjacent to the distal medial right lower leg and inferior to the medial malleolus which could represent areas of soft tissue ulceration and/or infection. 3. Mild generalized osteopenia. Lower Extremity MRI 10/23/19 00:00 IMPRESSION: NO EVIDENCE FOR OSTEOMYELITIS. Assessment and Plan - Diagnosis (1) Cellulitis of right lower extremity Is this a current diagnosis for this admission?: Yes Plan: CRP 69.7, ESR 66. X-ray possible osteomyelitis. MRI positive for diffuse cellulitis, negative for osteomyelitis or abscess. Day 3 IV antibiotics. Day 3 IV vancomycin. Day 3 IV Zosyn. Cultures no growth so far. Surgery consulted. Pending reevaluation as per MRI report. Continue empiric IV antibiotics, follow-up blood and wound culture, follow-up surgery recommendations. (2) COPD exacerbation Is this a current diagnosis for this admission?: Yes Plan: Improving. SPO2 WNL on RA. History of non-O2 dependent COPD. Continue albuterol, Atrovent, incentive spirometry and supplemental oxygen (3) History of panic attacks Is this a current diagnosis for this admission?: Yes Plan: Resume home meds. (4) Leg osteomyelitis, right Is this a current diagnosis for this admission?: Yes Plan: Ruled out. Please refer to #1
--- NOTE | 2019-10-25 09:36 | Operative Report ---
Operative Report DATE OF SURGERY: 10/25/19 PREOPERATIVE DIAGNOSIS: Chronic right supra malleolar leg wound POSTOPERATIVE DIAGNOSIS: Same OPERATION: Excisional debridement of skin, subcutaneous tissue, superficial fascia, nonviable subcutaneous tissue right lower extremity chronic wound SURGEON: LUZ ESQUIVEL ANESTHESIA: LMAC TISSUE REMOVED OR ALTERED: Nonviable skin, subcutaneous tissue, superficial fascia COMPLICATIONS: None ESTIMATED BLOOD LOSS: Scant INTRAOPERATIVE FINDINGS: See below PROCEDURE: The patient was seen in the preop holding area, right leg marked, then taken to the main operating room where LMAC anesthesia was induced. Right leg was isolated, prepped and draped with Betadine Surgical plan surgical timeout were conducted. Findings were significant for chronic wound medial aspect right leg several centimeters above the right medial malleolus. The chronic wound was full-thickness down to fascia, possibly 2 x 4 cm. The bed of the wound was anesthetized with 1% plain lidocaine. Using #10 blade, full-thickness nonviable eschar, moist and langston, was excised from the bed of the wound. We then used a curette to debride subcutaneous tissue,, and superficial fascia. This created a deeper wound cavity approximately 4 mm in areas. The underlying, viable tissue blood appropriately. Of note the patient had a strong dorsalis pedis pulse. Surrounding skin of the lower leg was viable; there was some desquamation which was removed bluntly. The wound was irrigated with saline several times. Of note some of the non- vitalized subcutaneous fat was sent for Gram stain, culture and sensitivity. No tissue was sent for histologic analysis. After irrigation, wound was covered with Xeroform, gauze roll, flat 4 x 4's, Kerlix. Leg was elevated. Patient tolerated the procedure well, taken recovery in stable condition. Plan: 1. Advance diet and resume preoperative medications and activity. No activity restriction regarding right leg 2. We will perform dressing change tomorrow, then initiate local wound care pending findings. 3. Follow-up wound cultures; patient will be appropriate candidate for follow- up with advanced wound center upon discharge from hospital.
[2019-10-25] MEDS ORDERED: KETOROLAC TROMETHAMINE INJ/PF 30 MG/1 ML SDV ONE (09:41)
[2019-10-25] MEDS ORDERED: ACETAMINOPHEN 1,000 MG/100 ML RTUPB IV ONE (09:42)
[2019-10-25] MEDS: FLUTICASONE/VILANTEROL 100-25 MCG/DOSE IH SCH (10:25)
[2019-10-25] MEDS: VANCOMYCIN HCL 750 MG in DEXTROSE 5%-WATER 250 ML IV SCH (10:25)
[2019-10-25] MEDS: DOCUSATE SODIUM 100 MG CAPSULE PO SCH ×2 (10:26→17:30)
[2019-10-25] MEDS: FUROSEMIDE 40 MG TABLET PO SCH (10:26)
[2019-10-25] MEDS: MAGNESIUM OXIDE 400 MG TABLET PO SCH ×2 (10:26→17:30)
[2019-10-25] MEDS: ESCITALOPRAM OXALATE 10 MG TABLET PO SCH (10:26)
[2019-10-25] MEDS: PREDNISONE 10 MG TABLET PO SCH (10:26)
[2019-10-25] MEDS: POTASSIUM CHLORIDE 10 MEQ TABLET.ER PO SCH ×3 (10:27→17:30)
[2019-10-25] MEDS: CLOPIDOGREL BISULFATE 75 MG TABLET PO SCH (10:27)
[2019-10-25] MEDS: DULOXETINE HCL 30 MG CAPSULE.DR PO SCH (10:27)
[2019-10-25] MEDS: MORPHINE SULFATE SR 30 MG TABLET PO SCH ×2 (10:27→21:49)
[2019-10-25] MEDS: ALPRAZOLAM 0.5 MG TABLET PO SCH ×4 (10:27→21:50)
[2019-10-26] MEDS: IPRATROPIUM/ALBUTEROL 0.5-2.5 MG/3 ML AMPUL NEB SCH ×2 (00:42→08:08)
[2019-10-26] MEDS: HEPARIN SOD (PORCINE) 5,000 UNIT/ML 1 ML VIAL SUBCUT SCH (05:00)
[2019-10-26 05:20] LABS: ABSOLUTE MONOCYTES (AUTO) 0.7 10^3/uL (0.1-1.4); ABSOLUTE NEUT (AUTO) 8.2 10^3/uL (1.7-8.2); BASOPHILS % (AUTO) 0.3 % (0-2); EOSINOPHILS % (AUTO) 0.3 % (0-6); HEMATOCRIT 33.1 % (36.0-47.0); LYMPHOCYTES % (AUTO) 10.3 % (13-45); MEAN CORPUSCULAR HEMOGLOBIN 30.5 pg (27.0-33.4); MEAN CORPUSCULAR HGB CONC 33.2 g/dL (32.0-36.0); MEAN CORPUSCULAR VOLUME 92 fl (80-97); MONOCYTES % (AUTO) 6.8 % (3-13); PLATELET COUNT 346 10^3/uL (150-450); RED CELL DISTRIBUTION WIDTH 13.9 % (11.5-14.0); SEGMENTED NEUTROPHILS % (AUTO) 82.3 % (42-78); TOTAL CELLS COUNTED % (AUTO) 100 %
[2019-10-26] MEDS: PIPERACILLIN SODIUM/TAZOBACTAM 2.25 GM in NORMAL SALINE 50 ML IV SCH ×2 (05:37→11:32)
[2019-10-26 05:46] LABS: ALBUMIN 2.8 g/dL (3.5-5.0); ALKALINE PHOSPHATASE 76 U/L (38-126); ANION GAP 6 (5-19); ASPARTATE AMINO TRANSFERASE 39 U/L (14-36); BILIRUBIN,DIRECT 0.2 mg/dL (0.0-0.4); BILIRUBIN,TOTAL 0.2 mg/dL (0.2-1.3); BLOOD UREA NITROGEN 9 mg/dL (7-20); CALCIUM 9.1 mg/dL (8.4-10.2); CARBON DIOXIDE 28 mmol/L (22-30); CHLORIDE 110 mmol/L (98-107); GLUCOSE 84 mg/dL (75-110); POTASSIUM 4.5 mmol/L (3.6-5.0); TOTAL PROTEIN 5.4 g/dL (6.3-8.2)
[2019-10-26 05:47] LABS: VANCOMYCIN,TROUGH 6.7 ug/mL (5.0-20.0)
[2019-10-26] MEDS: POTASSIUM CHLORIDE 10 MEQ TABLET.ER PO SCH ×2 (08:45→11:32)
[2019-10-26] MEDS: VANCOMYCIN HCL 750 MG in DEXTROSE 5%-WATER 250 ML IV SCH (08:46)
[2019-10-26] MEDS: HYDROMORPHONE HCL 2 MG TABLET PO PRN (08:54)
--- NOTE | 2019-10-26 08:57 | PDOC PROGRESS REPORT ---
Subjective Progress Note for:: 10/26/19 Subjective:: The patient feels comfortable Reason For Visit: COPD EXACERBATION, RIGHT LEG OSTEO AND CELLULITIS Physical Exam Vital Signs: Temp Pulse Resp BP Pulse Ox 98.8 F 106 H 16 149/73 H 95 10/26/19 07:41 10/26/19 08:09 10/26/19 08:09 10/26/19 07:41 10/26/19 08:09 Intake & Output 10/25/19 10/26/19 10/27/19 06:59 06:59 06:59 Intake Total 790 2060 Output Total 0 Balance 790 2060 Weight 48.8 kg 48.5 kg General appearance: PRESENT: no acute distress Extremities exam: PRESENT: other - Right lower extremity = debrided wound of the medial lower leg is clean, granulating, with no odor, minimal erythema, small edema, minimal drainage with serosanguineous fluid Results Laboratory Results: 10/26/19 04:31 10/26/19 04:31 10/26/19 10/26/19 10/26/19 04:31 04:31 04:31 WBC 10.0 RBC 3.60 L Hgb 11.0 L Hct 33.1 L MCV 92 MCH 30.5 MCHC 33.2 RDW 13.9 Plt Count 346 Seg Neutrophils % 82.3 H Sodium 144.4 Potassium 4.5 Chloride 110 H Carbon Dioxide 28 Anion Gap 6 BUN 9 Creatinine 0.62 0.62 Est GFR ( Amer) > 60 > 60 Glucose 84 Calcium 9.1 Total Bilirubin 0.2 AST 39 H Alkaline Phosphatase 76 Total Protein 5.4 L Albumin 2.8 L 10/22/19 21:40 NT-Pro-B Natriuret Pep 679 H Impressions: Chest X-Ray 10/22/19 21:24 IMPRESSION: COPD. Lungs are clear copyright 2010 [employer]- All Rights Reserved Tibia/Fibula X-Ray 10/22/19 23:28 IMPRESSION: 1. Indistinctness of the tip of the medial malleolus which appears new when compared to the prior study. Findings raise concern for possible osteomyelitis. 2. Lucency within the soft tissues adjacent to the distal medial right lower leg and inferior to the medial malleolus which could represent areas of soft tissue ulceration and/or infection. 3. Mild generalized osteopenia. Lower Extremity MRI 10/23/19 00:00 IMPRESSION: NO EVIDENCE FOR OSTEOMYELITIS. Assessment & Plan - Diagnosis (1) Wound of right lower extremity Qualifiers: Encounter type: initial encounter Qualified Code(s): S81.801A - Unspecified open wound, right lower leg, initial encounter Is this a current diagnosis for this admission?: Yes - Time Time Spent with patient: 25-34 minutes - Plan Summary Plan Summary: Assessment: Postoperative day #1 following debridement of right medial leg chronic wound Culture significant for gram-negative rods, with identification pending Patient currently on vancomycin and Zosyn Right lower extremity edema much improved, erythema receded, Surgery debrided wound right leg is granulating and clean Plan: Apply Unna boot to right lower extremity Patient can be discharged to home today as per general surgery viewpoint I am recommending Cipro 500 mg p.o. twice daily and clindamycin 10 mg p.o. 3 times daily for 10 days Patient to follow-up with wound clinic for Unna boot replacement and wound care
[2019-10-26] MEDS: ALPRAZOLAM 0.5 MG TABLET PO SCH (09:05)
[2019-10-26] MEDS: MORPHINE SULFATE SR 30 MG TABLET PO SCH (09:06)
[2019-10-26] MEDS: CLOPIDOGREL BISULFATE 75 MG TABLET PO SCH (09:06)
[2019-10-26] MEDS: FUROSEMIDE 40 MG TABLET PO SCH (09:07)
[2019-10-26] MEDS: PREDNISONE 10 MG TABLET PO SCH (09:08)
[2019-10-26] MEDS: ESCITALOPRAM OXALATE 10 MG TABLET PO SCH (09:08)
[2019-10-26] MEDS: DULOXETINE HCL 30 MG CAPSULE.DR PO SCH (09:08)
[2019-10-26] MEDS: DOCUSATE SODIUM 100 MG CAPSULE PO SCH (09:09)
--- NOTE | 2019-10-26 09:09 | Operative Report ---
Nonrecallable Operative Report DATE OF SURGERY: 10/26/19 PREOPERATIVE DIAGNOSIS: Neck ulcer medial aspect right lower extremity POSTOPERATIVE DIAGNOSIS: Same OPERATION: Right lower extremity Unna boot placement SURGEON: TODD NEW ANESTHESIA: Other - None TISSUE REMOVED OR ALTERED: Not applicable COMPLICATIONS: None ESTIMATED BLOOD LOSS: Not applicable INTRAOPERATIVE FINDINGS: Chronic wound of the medial aspect right lower extremity. Multiple small chronic wounds anterior aspect right lower leg PROCEDURE: The procedure was done at bedside. The extremity of interest was elevated and the Unna boot was placed starting from just proximal to the toes up to the foot and lower extremity to just below the knee. This was covered with an Kirill bandage without tension. The patient tolerated procedure well.
[2019-10-26] MEDS: FLUTICASONE/VILANTEROL 100-25 MCG/DOSE IH SCH (09:14)
[2019-10-26] MEDS: MAGNESIUM OXIDE 400 MG TABLET PO SCH (10:00)
[2019-10-26 11:44] VITALS: BP 144/72
[2019-10-26] MEDS ORDERED: VANCOMYCIN HCL 500 MG in DEXTROSE 5%-WATER 100 ML IV SCH (20:00)
--- NOTE | 2019-10-30 13:09 | PDOC DISCHARGE SUMMARY ---
Impression - Admit/DC Date/PCP Admission Date/Primary Care Provider: 10/23/19 02:34 BOLIVAR YADAV MD Discharge Date: 10/30/19 - Discharge Diagnosis (1) Cellulitis of right lower extremity Is this a current diagnosis for this admission?: Yes (2) COPD exacerbation Is this a current diagnosis for this admission?: Yes (3) History of panic attacks Is this a current diagnosis for this admission?: Yes (4) Leg osteomyelitis, right Is this a current diagnosis for this admission?: Yes - Additional Information Resuscitation Status: Full Code Discharge Diet: As Tolerated Discharge Activity: Activity As Tolerated Referrals: WOUND CARE [Outside] - 11/07/19 2:00 pm Prescriptions: Clindamycin HCl [Cleocin 300 mg Capsule] 300 mg PO TID 10 Days #30 capsule Levofloxacin [Levaquin 500 mg Tablet] 500 mg PO DAILY 10 Days #10 tablet Home Medications: Alprazolam [Xanax 0.5 mg Tablet] 0.5 mg PO QID 10/23/19 Clopidogrel Bisulfate [Plavix 75 mg Tablet] 75 mg PO DAILY 10/23/19 Duloxetine HCl 120 mg PO DAILY 10/23/19 Escitalopram Oxalate 20 mg PO DAILY 10/23/19 Fluticasone/Vilanterol [Breo Ellipta 100-25 Mcg INH] 1 puff IH DAILY 10/23/19 Furosemide [Lasix 20 mg Tablet] 20 mg PO DAILY 10/23/19 Hydromorphone HCl [Dilaudid] 4 mg PO Q4HP PRN 10/23/19 Magnesium Oxide [Magnesium] 400 mg PO BID 10/23/19 Morphine Sulfate [Morphine Sulfate ER] 60 mg PO Q12 10/23/19 Potassium Chloride [Klor-Con M20] 20 meq PO DAILY 10/23/19 Prednisone 15 mg PO DAILY 10/23/19 Tizanidine HCl [Zanaflex] 2 mg PO Q8 10/23/19 Clindamycin HCl [Cleocin 300 mg Capsule] 300 mg PO TID 10 Days #30 capsule 10/26/19 Levofloxacin [Levaquin 500 mg Tablet] 500 mg PO DAILY 10 Days #10 tablet 10/26/19 History of Present Illiness History of Present Illness: HOWARD GR is a 74 year old female Hospital Course Hospital Course: (1) Cellulitis of right lower extremity CRP 69.7, ESR 66. X-ray possible osteomyelitis. MRI positive for diffuse cellulitis, negative for osteomyelitis or abscess. Surgery was consulted. Patient underwent I&D. Received 4 days of empiric IV antibiotics. Day 4 days of IV vancomycin. Received 4 days of IV Zosyn. Wound culture positive for Proteus and Pseudomonas both sensitive to levofloxacin. Was discharged on clindamycin and levofloxacin. Patient was not discharged on ciprofloxacin as it was interacting with her SSRIs. Patient has an appointment at the wound clinic on 11/07/2018. Patient was asked to follow-up with [facility] as outpatient. (2) COPD exacerbation Resolved. SPO2 WNL on RA. History of non-O2 dependent COPD. Was a started on albuterol, Atrovent, incentive spirometry and supplemental oxygen (3) History of panic attacks Resume home meds. (4) Leg osteomyelitis, right Ruled out. Please refer to #1 Physical Exam Vital Signs: Temp Pulse Resp BP Pulse Ox 98.8 F 106 H 16 144/72 H 95 10/26/19 11:40 10/26/19 11:40 10/26/19 11:40 10/26/19 11:40 10/26/19 11:40 General appearance: PRESENT: no acute distress, well-developed, well-nourished Head exam: PRESENT: atraumatic, normocephalic Respiratory exam: PRESENT: clear to auscultation verónica. ABSENT: rales, rhonchi, wheezes Cardiovascular exam: PRESENT: RRR. ABSENT: diastolic murmur, rubs, systolic murmur GI/Abdominal exam: PRESENT: normal bowel sounds, soft. ABSENT: distended, guarding, mass, organolmegaly, rebound, tenderness Musculoskeletal exam: PRESENT: other - Right lower extremity below-knee anterior guerra status post I&D. Wound looks clean. Neurovascularly intact. Neurological exam: PRESENT: alert, awake, oriented to person, oriented to place, oriented to time, oriented to situation, CN II-XII grossly intact. ABSENT: motor sensory deficit Results Laboratory Results: WBC 10.0 10^3/uL (4.0-10.5) 10/26/19 04:31 RBC 3.60 10^6/uL (3.72-5.28) L 10/26/19 04:31 Hgb 11.0 g/dL (12.0-15.5) L 10/26/19 04:31 Hct 33.1 % (36.0-47.0) L 10/26/19 04:31 MCV 92 fl (80-97) 10/26/19 04:31 MCH 30.5 pg (27.0-33.4) 10/26/19 04:31 MCHC 33.2 g/dL (32.0-36.0) 10/26/19 04:31 RDW 13.9 % (11.5-14.0) 10/26/19 04:31 Plt Count 346 10^3/uL (150-450) 10/26/19 04:31 Lymph % (Auto) 10.3 % (13-45) L 10/26/19 04:31 [place] % (Auto) 6.8 % (3-13) 10/26/19 04:31 Eos % (Auto) 0.3 % (0-6) 10/26/19 04:31 Baso % (Auto) 0.3 % (0-2) 10/26/19 04:31 Absolute Neuts (auto) 8.2 10^3/uL (1.7-8.2) 10/26/19 04:31 Absolute Lymphs (auto) 1.0 10^3/uL (0.5-4.7) 10/26/19 04:31 Absolute Monos (auto) 0.7 10^3/uL (0.1-1.4) 10/26/19 04:31 Absolute Eos (auto) 0.0 10^3/uL (0.0-0.6) 10/26/19 04:31 Absolute Basos (auto) 0.0 10^3/uL (0.0-0.2) 10/26/19 04:31 Total Counted 100 10/22/19 21:40 Seg Neutrophils % 82.3 % (42-78) H 10/26/19 04:31 Seg Neuts % (Manual) 94 % (42-78) H 10/22/19 21:40 Band Neutrophils % 3 % (3-5) 10/22/19 21:40 Lymphocytes % (Manual) 2 % (13-45) L 10/22/19 21:40 Monocytes % (Manual) 1 % (3-13) L 10/22/19 21:40 Eosinophils % (Manual) 0 % (0-6) 10/22/19 21:40 Basophils % (Manual) 0 % (0-2) 10/22/19 21:40 Abs Neuts (Manual) 10.9 10^3/uL (1.7-8.2) H 10/22/19 21:40 Abs Lymphs (Manual) 0.2 10^3/uL (0.5-4.7) L 10/22/19 21:40 Abs Monocytes (Manual) 0.1 10^3/uL (0.1-1.4) 10/22/19 21:40 Absolute Eos (Manual) 0.0 10^3/uL (0.0-0.6) 10/22/19 21:40 Abs Basophils (Manual) 0.0 10^3/uL (0.0-0.2) 10/22/19 21:40 Platelet Comment ADEQUATE 10/22/19 21:40 RBC Morph Comment NORMO-CYTIC/CHROMIC 10/22/19 21:40 ESR 66 mm/hr (0-30) H 10/23/19 11:40 PT 12.8 SEC (11.4-15.4) 10/22/19 21:40 INR 0.96 10/22/19 21:40 VBG pH 7.32 (7.30-7.42) 10/22/19 21:40 VBG pCO2 62.9 mmHg (35-63) 10/22/19 21:40 VBG HCO3 31.9 mmol/L (20-32) 10/22/19 21:40 VBG Base Excess 4.1 mmol/L 10/22/19 21:40 Sodium 144.4 mmol/L (137-145) 10/26/19 04:31 Potassium 4.5 mmol/L (3.6-5.0) 10/26/19 04:31 Chloride 110 mmol/L (98-107) H 10/26/19 04:31 Carbon Dioxide 28 mmol/L (22-30) 10/26/19 04:31 Anion Gap 6 (5-19) 10/26/19 04:31 BUN 9 mg/dL (7-20) 10/26/19 04:31 Creatinine 0.62 mg/dL (0.52-1.25) 10/26/19 04:31 Creatinine 0.62 mg/dL (0.52-1.25) 10/26/19 04:31 Est GFR ( Amer) > 60 (>60) 10/26/19 04:31 Est GFR ( Amer) > 60 (>60) 10/26/19 04:31 Est GFR (MDRD) Non-Af > 60 (>60) 10/26/19 04:31 Est GFR (MDRD) Non-Af > 60 (>60) 10/26/19 04:31 Glucose 84 mg/dL (75-110) 10/26/19 04:31 Lactic Acid 1.5 mmol/L (0.7-2.1) 10/23/19 03:11 Calcium 9.1 mg/dL (8.4-10.2) 10/26/19 04:31 Magnesium 1.9 mg/dL (1.6-2.3) 10/25/19 04:39 Total Bilirubin 0.2 mg/dL (0.2-1.3) 10/26/19 04:31 Direct Bilirubin 0.2 mg/dL (0.0-0.4) 10/26/19 04:31 Neonat Total Bilirubin Not Reportable 10/26/19 04:31 Neonat Direct Bilirubin Not Reportable 10/26/19 04:31 Neonat Indirect Bili Not Reportable 10/26/19 04:31 AST 39 U/L (14-36) H 10/26/19 04:31 ALT 30 U/L (<35) 10/26/19 04:31 Alkaline Phosphatase 76 U/L (38-126) 10/26/19 04:31 C-Reactive Protein 69.7 mg/L (<10.0) H 10/23/19 11:40 NT-Pro-B Natriuret Pep 679 pg/mL (<125) H 10/22/19 21:40 Total Protein 5.4 g/dL (6.3-8.2) L 10/26/19 04:31 Albumin 2.8 g/dL (3.5-5.0) L 10/26/19 04:31 Urine Color YELLOW 10/23/19 00:15 Urine Appearance CLEAR 10/23/19 00:15 Urine pH 6.0 (5.0-9.0) 10/23/19 00:15 Ur Specific [place] 1.017 10/23/19 00:15 Urine Protein 30 mg/dL (NEGATIVE) H 10/23/19 00:15 Urine Glucose (UA) NEGATIVE mg/dL (NEGATIVE) 10/23/19 00:15 Urine Ketones NEGATIVE mg/dL (NEGATIVE) 10/23/19 00:15 Urine Blood NEGATIVE (NEGATIVE) 10/23/19 00:15 Urine Nitrite (Reflex) NEGATIVE (NEGATIVE) 10/23/19 00:15 Urine Bilirubin NEGATIVE (NEGATIVE) 10/23/19 00:15 Urine Urobilinogen NEGATIVE mg/dL (<2.0) 10/23/19 00:15 Leukocyte Esterase Rfl SMALL (NEGATIVE) H 10/23/19 00:15 Urine RBC (Auto) 7 /HPF 10/23/19 00:15 U Hyaline Cast (Auto) 67 /LPF 10/23/19 00:15 Urine WBC (Reflex) 4 /HPF 10/23/19 00:15 Squamous Epi Cells Auto 2 /HPF 10/23/19 00:15 U Non-Squamous Epis Auto 2 /HPF 10/23/19 00:15 Urine Mucus (Auto) RARE /LPF 10/23/19 00:15 Urine Ascorbic Acid 20 (NEGATIVE) H 10/23/19 00:15 Time Trough Drawn 0431 10/26/19 04:31 Vancomycin Trough 6.7 ug/mL (5.0-20.0) 10/26/19 04:31 10/22/19 21:40 NT-Pro-B Natriuret Pep 679 H Impressions: Chest X-Ray 10/22/19 21:24 IMPRESSION: COPD. Lungs are clear copyright 2011 [email or web address]- All Rights Reserved Tibia/Fibula X-Ray 10/22/19 23:28 IMPRESSION: 1. Indistinctness of the tip of the medial malleolus which appears new when compared to the prior study. Findings raise concern for possible osteomyelitis. 2. Lucency within the soft tissues adjacent to the distal medial right lower leg and inferior to the medial malleolus which could represent areas of soft tissue ulceration and/or infection. 3. Mild generalized osteopenia. Lower Extremity MRI 10/23/19 00:00 IMPRESSION: NO EVIDENCE FOR OSTEOMYELITIS. Plan Time Spent: Greater than 30 Minutes Stroke Is this a Stroke Patient?: No Acute Heart Failure - Is this a Heart Failure Patient?: No
== END 2019-10-26 13:40 | disposition home or self-care (01) | DRG 571 ==
LOC: ER 20:41 → EH 10-23 02:34 → 4N 10-23 04:08
PROVIDERS: ADMIT Internal Medicine; ATTEND Internal Medicine
PROC: 0JBN0ZZ Excision of Right Lower Leg Subcutaneous Tissue and Fascia, Open Approach (ICD-10-PCS; principal; 2019-10-25 08:00)
DX: L03.115 Cellulitis of right lower limb (principal); J44.1 Chronic obstructive pulmonary disease with (acute) exacerbation; M86.9 Osteomyelitis, unspecified; F11.20 Opioid dependence, uncomplicated; L97.319 Non-pressure chronic ulcer of right ankle with unspecified severity; B96.4 Proteus (mirabilis) (morganii) as the cause of diseases classified elsewhere; B96.5 Pseudomonas (aeruginosa) (mallei) (pseudomallei) as the cause of diseases classified elsewhere; K21.9 Gastro-esophageal reflux disease without esophagitis; G89.29 Other chronic pain; Z79.01 Long term (current) use of anticoagulants; Z79.51 Long term (current) use of inhaled steroids; Z79.899 Other long term (current) drug therapy
CPT/HCPCS: 01470; 36415; 71046; 80048; 80053; 80202; 81001; 82565; 82803; 83605; 83735; 83880; 85025; 85610; 85652; 86140; 87040; 87070; 87075; 87077; 87086; 87186; 87205; 93005; 93010; 94640; 94799; 96365; 96366; 99291; J0131; J1644; J1885; J2250; J2543; J2704; J3010; J3370; J3490; J7030; J7050; J7060; J7512; J7620

== ENCOUNTER → 2019-11-20 | Outpatient (CLI) | payer MEDICARE ==
--- NOTE | 2019-11-21 12:15 | XCELERA REPORT ---
[address] [address] Lower Extremity Arterial Evaluation Name: HOWARD GR Age: 74 yrs Gender: Female : 1945 Patient Status: Outpatient Patient Location: Study Date: 11/20/2019 01:20 PM Procedure: A color flow and duplex scan of the lower extremity arteries was performed bilaterally with velocity and waveform anaylsis. Ankle brachial indicies performed. Reason For Study: RT CALF ULCER Ordering Physician: KIMBERLI DEWEY Performed By: Chris Gibson Measurements and Calculations Right Left HEAVY TRUCK MECHANIC PSV 39.0 63.7 cm/sec Prox PFA PSV -94.8 -160.6cm/sec Prox SFA PSV -97.2 98.1 cm/sec Mid SFA PSV -121.9 -118.7cm/sec Dist SFA PSV -78.1 -50.9 cm/sec Prox Pop A PSV 63.3 31.0 cm/sec Mid SUHAIL PSV 59.7 cm/sec Dist SUHAIL PSV 47.1 cm/sec Mid GRAIN SHOVELER PSV 71.9 cm/sec Dist GRAIN SHOVELER PSV 42.7 cm/sec Hunter Pedis PSV -58.7 -48.6 cm/sec Right Side Arterial Evaluation Bandaging in place, did not much impair study. Normal velocity and triphasic waveforms noted from the Common Femoral artery to the Popliteal. Biphasic with normal velocity, no brocading. in the Anterior Tibial and Posterior tibial arteries. Ankle Brachial index 1.00. Left Side Arterial Evaluation Normal velocity and triphasic waveforms noted from the Common Femoral artery to the Popliteal. Biphasic with low normal velocity, no brocading. in the Anterior Tibial and Posterior tibial arteries. Ankle Brachial index 0.9. Interpretation Summary Mild hemodynamically significant lesions in the bilateral lower extremities, on duplex imaging, at rest. Duplex findings are normal to Popliteals, mild changes in the infrageniculate vessels, bilaterally. ISIS's are in normal range, bilaterally. This suggests no significant obstructive arterial disease. : KIMBERLI DEWEY > Freeman Barajas
== END ==
LOC: SP 12:51
PROVIDERS: ATTEND Nurse Practitioner Family
DX: L97.212 Non-pressure chronic ulcer of right calf with fat layer exposed (principal)
CPT/HCPCS: 93922; 93925

== ENCOUNTER 2020-01-22 12:44 | Emergency (ER) | payer MEDICARE ==
--- NOTE | 2020-01-22 13:28 | ER Document Report ---
ED General - General Chief Complaint: Blood Pressure Problem Stated Complaint: BLOOD PRESSURE PROBLEMS Time Seen by Provider: 01/22/20 13:04 Primary Care Provider: DONA MERCADO [Primary Care Provider] - Follow up as needed TRAVEL OUTSIDE OF THE [place] IN LAST 30 DAYS: No - HPI Notes: Chief complaint: Fall and transient hypotension 74-year-old female with chronic ulceration of right lower leg being treated by the [facility]. She was there for her follow-up appointment today for dressing change and was being called in from the waiting area when she sustained a mechanical fall. The patient ordinarily ambulates with a Rollator. She says that she tripped over her bedroom slipper and went down striking the back of her head on the arm of a chair. There was no loss of consciousness and no nausea vomiting. She was apparently transiently hypotensive 90/60. She insisted that she felt fine and wanted to continue her appointment and go home but the staff at the wound care center called EMS and she was transported here. She received 500 cc of normal saline IV during transport. She is totally asymptomatic at this time and basically would like to go home. Patient denies taking aspirin or any type of anticoagulation. - Related Data Allergies/Adverse Reactions: amoxicillin [From Augmentin] Allergy (Verified 01/22/20 13:18) clavulanic acid [From Augmentin] Allergy (Verified 01/22/20 13:18) hydrocodone [From Vicodin] Allergy (Verified 01/22/20 13:18) Sulfa (Sulfonamide Antibiotics) Allergy (Verified 01/22/20 13:18) tetracycline Allergy (Verified 01/22/20 13:18) Past Medical History - General Information source: Patient, Emergency Med Personnel, [facility] Records - Social History Smoking Status: Former Smoker Family History: Hypertension - Past Medical History Cardiac Medical History: Reports: Hx Congestive Heart Failure Pulmonary Medical History: Reports: Hx Bronchitis, Hx COPD, Hx Pneumonia Renal/ Medical History: Denies: Hx Peritoneal Dialysis GI Medical History: Reports: Hx Gastritis, Hx Gastroesophageal Reflux Disease, Hx Colonoscopy Musculoskeletal Medical History: Reports Hx Arthritis - degenerative disc dx (back); cervical discs bulging, Reports Hx Musculoskeletal Deformity, Reports Hx Musculoskeletal Trauma Psychiatric Medical History: Reports: Hx Depression Past Surgical History: Reports: Hx Orthopedic Surgery - L hip replacement; multiple hip surgeries - Immunizations Hx Diphtheria, Pertussis, Tetanus Vaccination: Yes - 2013 Hx Pneumococcal Vaccination: 05/31/17 Review of Systems - Review of Systems Notes: Constitutional: Negative for fever. HENT: Negative for sore throat. Eyes: Negative for visual changes. Cardiovascular: Negative for chest pain. Respiratory: Negative for shortness of breath. Gastrointestinal: Negative for abdominal pain, vomiting or diarrhea. Genitourinary: Negative for dysuria. Musculoskeletal: Negative for back pain. Skin: Negative for rash. Neurological: Negative for headaches, weakness or numbness. 10 point ROS negative except as marked above and in HPI. Physical Exam - Vital signs Vitals: Temp Pulse Resp BP Pulse Ox 97.8 F 75 18 109/50 L 97 01/22/20 13:18 01/22/20 13:18 01/22/20 13:18 01/22/20 13:18 01/22/20 13:18 - Notes Notes: GENERAL: Somewhat chronically ill appearing elderly female in no acute distress. SKIN: Good turgor no rashes. HEAD: Normocephalic atraumatic. I am unable to palpate any abrasions appreciate any area of swelling of the scalp. EYES: PERRLA. EOMI. Conjunctivae and sclerae clear. EARS: CANALS AND TMS CLEAR. NOSE: CLEAR. MOUTH: Moist mucosa. Very poor dentition. No stridor or edema. No drooling. NECK: Supple. No masses or thyromegaly. No adenopathy. Carotids 2+ without bruits. No JVD. BACK: Symmetrical without tenderness. CHEST: Respirations unlabored. Breath sounds clear and symmetrical. HEART: Regular rhythm. No murmur gallop or rub. ABDOMEN: Soft nontender without masses, organomegaly or rebound. Bowel sounds normally active. No bruits. GENITALIA: Deferred. EXTREMITIES: Patient has Unna's boot on right lower leg. 1+ edema of left lower leg. No calf tenderness. Cap refill less than 1.5 seconds. Dorsalis pedis and posterior tibial pulses 2+ and symmetrical. NEUROLOGICAL: GCS 15. Alert and oriented x3. Fluent speech. Cranial nerves II through XII intact. Sensorimotor and cerebellar normal. Normal tone. PSYCHIATRIC: Appropriate affect. Course - Re-evaluation Re-evalutation: 01/22/20 13:31 Initially the patient did not want to have anything done. After an extended discussion she has agreed to a noncontrast CT of the head and C-spine. She does not want labs and says that she absolutely refuses any other intervention at this time. 01/22/20 15:[address]s of head and C-spine showed no acute traumatic changes. Patient continued to decline other testing. She was ambulated with her Rollator and this was well-tolerated. She appears to be her usual baseline. Her vital signs remained stable. She has a friend who is going to come stay with her for the next 48 hours and will pick her up from the hospital. - Vital Signs Vital signs: Temp Pulse Resp BP Pulse Ox 97.8 F 75 18 109/50 L 97 01/22/20 13:18 01/22/20 13:18 01/22/20 13:18 01/22/20 13:18 01/22/20 13:18 - Diagnostic Test Radiology reviewed: Reports reviewed - Head scan remarkable only for age-related atrophy. C-spine CT showed advanced degenerative changes with no acute fracture or subluxation. Discharge - Discharge Clinical Impression: Fall Qualifiers: Encounter type: initial encounter Qualified Code(s): W19.XXXA - Unspecified fall, initial encounter Condition: Stable Disposition: HOME, SELF-CARE Additional Instructions: Continue regular medications. Tylenol as needed. Ice packs as needed. Return here as needed for new or worsening symptoms: Pain that is worsening or unimproved Uncontrolled vomiting Increased difficulty with walking, eyesight, coordination, speaking or swallowing. High fever or shaking chills Overall worsening Follow-up with your primary care doctor within the next 3 to 5 days. Referrals: DONA MERCADO [Primary Care Provider] - Follow up as needed
--- NOTE | 2020-01-22 14:07 | RADIOLOGY REPORT (SQ) ---
EXAM DESCRIPTION: CT HEAD WITHOUT COMPLETED DATE/TIME: 01/22/2020 1:45 pm REASON FOR STUDY: trauma COMPARISON: None. TECHNIQUE: Axial images acquired through the brain without intravenous contrast. Images reviewed wi th bone, brain and subdural windows. Additional sagittal and coronal reconstructions were generated. Images stored on PACS. All CT scanners at this facility use dose modulation, iterative reconstruction, and/or weight based d osing when appropriate to reduce radiation dose to as low as reasonably achievable (ALARA). [facility]: Dose Right [facility]: CareDose [facility]: Dose Right [facility]: Teradose 4D [facility]: [employer] RADIATION DOSE: CT Rad equipment meets quality standard of care and radiation dose reduction techniq ues were employed. CTDIvol: 53.2 mGy. DLP: 964 mGy-cm. mGy. LIMITATIONS: None. FINDINGS: VENTRICLES: Normal size and contour. CEREBRUM: Mild cortical atrophy. No masses. No hemorrhage. No midline shift. No evidence for acut e infarction. Normal langston/white matter differentiation. No areas of low density in the white matter. CEREBELLUM: No masses. No hemorrhage. No alteration of density. No evidence for acute infarction. EXTRAAXIAL SPACES: No fluid collections. No masses. ORBITS AND GLOBE: No intra- or extraconal masses. Normal contour of globe without masses. CALVARIUM: No fracture. PARANASAL SINUSES: No fluid or mucosal thickening. SOFT TISSUES: No mass or hematoma. OTHER: No other significant finding. IMPRESSION: Mild involutional changes with no acute intracranial imaging findings. EVIDENCE OF ACUTE STROKE: NO. COMMENT: Quality ID # [id number]: Final reports with documentation of one or more dose reduction techniques (e.g., Automated exposure control, adjustment of the mA and/or kV according to patient size, use of iterative reconstruction technique) TECHNICAL DOCUMENTATION: JOB ID: [id number] 2010 [employer]- All Rights Reserved Reading location - IP/workstation name: [email or web address]
--- NOTE | 2020-01-22 14:10 | RADIOLOGY REPORT (SQ) ---
EXAM DESCRIPTION: CT CERVICAL SPINE WITHOUT COMPLETED DATE/TIME: 01/22/2020 1:45 pm REASON FOR STUDY: trauma COMPARISON: None. TECHNIQUE: Axial images acquired through the cervical spine without intravenous contrast. Images re viewed with lung, soft tissue and bone windows. Reconstructed coronal and sagittal MPR images review ed. Images stored on PACS. All CT scanners at this facility use dose modulation, iterative reconstruction, and/or weight based d osing when appropriate to reduce radiation dose to as low as reasonably achievable (ALARA). [facility]: Dose Right [facility]: CareDose [facility]: Dose Right [facility]: Teradose 4D [facility]: [employer] RADIATION DOSE: CT Rad equipment meets quality standard of care and radiation dose reduction techniq ues were employed. CTDIvol: 10.7 mGy. DLP: 206 mGy-cm. mGy. LIMITATIONS: None. FINDINGS: ALIGNMENT: Anatomic. MINERALIZATION: Normal. VERTEBRAL BODIES: No fractures or dislocation. DISCS: Disc spaces narrowed from C4-C7 with small marginal osteophytes. FACETS, LATERAL MASSES, POSTERIOR ELEMENTS: Hypertrophic facet changes are present, left more than ri ght. HARDWARE: None in the spine. VISUALIZED RIBS: No fractures. LUNG APICES AND SOFT TISSUES: No significant or acute findings. OTHER: No other significant finding. IMPRESSION: Degenerative disc disease, spondylosis, and facet arthropathy. No acute finding. TECHNICAL DOCUMENTATION: JOB ID: [id number] Quality ID # [id number]: Final reports with documentation of one or more dose reduction techniques (e.g., Au tomated exposure control, adjustment of the mA and/or kV according to patient size, use of iterative reconstruction technique) 2010 [employer]- All Rights Reserved Reading location - IP/workstation name: [email or web address]
[2020-01-22 15:42] VITALS: BP 141/63
== END 2020-01-22 15:50 | disposition home or self-care (01) ==
LOC: ER 12:44
DX: S09.90XA Unspecified injury of head, initial encounter (principal); I95.9 Hypotension, unspecified; W18.09XA Striking against other object with subsequent fall, initial encounter; Z88.1 Allergy status to other antibiotic agents; Z88.8 Allergy status to other drugs, medicaments and biological substances; Z88.2 Allergy status to sulfonamides; Z87.891 Personal history of nicotine dependence; I50.9 Heart failure, unspecified; J44.9 Chronic obstructive pulmonary disease, unspecified
CPT/HCPCS: 70450; 72125; 99283